=== PATIENT | male | born 1955 ===

== ENCOUNTER 2020-02-21 11:40 | Inpatient (IN) | payer OTHER ==
[2020-02-21] MEDS ORDERED: ALBUTEROL 2.5 MG/3 ML NEBU IH PRN (15:44)
[2020-02-21] MEDS ORDERED: ONDANSETRON 4 MG ODT TAB PO PRN (15:44)
[2020-02-21] MEDS ORDERED: POLYETHYLENE GLYCOL 3350 17 GM POWDER PO PRN (15:44)
[2020-02-21] MEDS ORDERED: ACETAMINOPHEN 325 MG TAB PO PRN (15:44)
[2020-02-21] MEDS: TICAGRELOR 90 MG TAB PO SCH (23:00)
--- NOTE | 2020-02-22 09:40 | History and Physical Report ---
History of Present Illness Date: 02/22/20 Date of admission: 02/21/20 15:17 Chief Complaint: CVA with left nondominant hemiparesis History of present illness: 64-year-old male who was in his normal state of health until he developed acute onset of weakness and facial droop. He was taken to the ER on 02/11/2020. He was worked up and diagnosed with a right sided MCA/ICA occlusion and was transferred for neuro intervention and underwent thrombectomy on 02/11/2020. After thrombectomy he had a slight improvement in his function. He developed a widespread rash was possibly related to medications that were subsequently stopped. Blood pressure was variable and apparently his home dose of HCTZ was reduced at one-point and he continues on that decreased dose currently. Will need to monitor his blood pressure closely and adjust medications as needed to keep him normotensive. Patient also had dysphagia and was evaluated by speech therapy which started him on a modified diet. We will monitor the patient closely for any issues with dehydration and are aspiration. Modified barium study as needed in order to prove his ability to take in a higher level diet vitals were incidentally found on a CT and an ultrasound showed a 3.7 hypervascular TR 3 nodule in the right mid thyroid that meets criteria for biopsy. Patient will need to follow-up with endocrinology at discharge for further biopsy and work-up. Patient did have some higher glucose values during his stay at the outside hospital and hemoglobin A1c was slightly elevated at 6.6. CTA performed on showed no significant stenosis involving the cervical carotid and vertebral arteries. States he had the previously seen occluded right internal carotid artery has been reestablished with no occlusion or high- grade stenosis. MRI brain on 02/11/2010 shows right MCA distribution infarct involving the caudate nucleus and ganglion region was more raised in the right parietal area and right frontal region. No significant mass-effect or hemorrhage identified. After the patient was medically stabilized they were transferred for further rehabilitation. All available medical records have been reviewed. Plan of care was discussed with patient and family. Day prior to the patient's admission for further acute inpatient rehabilitation approximately 100 pages of medical records were reviewed and summarized as stated above in the HPI. In total the review took 47 minutes. Due to the patient's current condition with acute CVA status post thrombectomy, continuing dysphagia and labile blood pressure, patient remains a high risk for further complications due to the stroke, aspiration pneumonia, secondary stroke and or sudden . Past History Past Medical History: hypertension Past Surgical History: No surgical history Social history: , lives with family, smoking, full code. denies: alcohol abuse (Alcohol use) Family history: stroke Medications and Allergies Allergies Allergy/AdvReac Type Severity Reaction Status Date / Time codeine Allergy Unknown Unverified 02/21/20 12:52 potassium Allergy Unknown Unverified 02/21/20 12:52 Active Meds: Active Medications Acetaminophen (Tylenol) 650 mg PO Q6H PRN PRN Reason: Non Cardiac Pain or Temp>100.5 Albuterol (Proventil) 2.5 mg IH Q4HRT PRN PRN Reason: Shortness Of Breath Aspirin (Halfprin Ec) 81 mg PO QDAY [facility] Atorvastatin Calcium (Lipitor) 80 mg PO QHS [facility] Last Admin: 02/21/20 22:59 Dose: 80 mg Documented by: Enoxaparin Sodium (Enoxaparin) 40 mg SUB-Q QDAY [facility] Hydrochlorothiazide (Hctz) 12.5 mg PO QDAY [facility] Ondansetron HCl (Zofran Odt) 4 mg PO Q8H PRN PRN Reason: Nausea And Vomiting Polyethylene Glycol (Miralax 3350) 17 gm PO QDAY PRN PRN Reason: Constipation Ticagrelor (Brilinta) 90 mg PO BID [facility] Last Admin: 02/21/20 23:00 Dose: 90 mg Documented by: Review of Systems All systems: negative (ROS negative for 10 systems except as noted below with pertinent positives and negatives.) Ears, nose, mouth and throat: dysphagia, no decreased hearing Cardiovascular: no chest pain, no rapid/irregular heart beat, no edema Respiratory: no cough, no shortness of breath Gastrointestinal: constipation, no abdominal pain, no nausea, no diarrhea Genitourinary Male: no dysuria Musculoskeletal: no shooting arm pain, no shooting leg pain Integumentary: rash, no wounds Neurological: weakness, lack of coordination, gait dysfunction Psychiatric: sadness/tearfullness Exam - Exam Narrative exam: MUSCULOSKELETAL SPECIALTY EXAM CONSTITUTIONAL: Well developed, well nourished, appropriately groomed, thin. RIGHT hand dominant. LYMPHATIC: No appreciable abnormalities palpable in neck RESPIRATORY: Clear to auscultation bilaterally, no increased work of breathing CARDIOVASCULAR: Regular Rate/ Rhythm, no swelling, edema or tenderness in BUE or BLE. Pulses palpable in all extremities. All extremities warm. GI: + bowel sounds, soft, NTTP, nondistended. INTEGUMENTARY: Widespread rash on torso and upper extremities. Otherwise, normal, no lesion, masses or bruising noted in extremities. MUSCULOSKELETAL: BUE and BLE normal without defect, crepitus, subluxation, effusion, arthritic changes or TTP. Seem to be some inattention to the left side on initial exam for strength patient had difficulty but with some concentration, he was able to improve his strength on his left extremities. R 4+/5 L 3 - 4- /5 ROM normal on the right, slight decreased on the left Tone within normal limits NEURO: CN II : Visual pisano full to confrontation CN II, III : PERRL CN III, IV, : EOMI CN V : Facial sensation intact CN VII : Left facial droop CN VIII : Hearing intact to finger rustle CN IX, X : Palate/uvula elevate midline, phonation normal CN XI : Intact shoulder shrug and head rotation CN XII : Tongue protrudes midline Sensation intact in all extremities without extinction. Reflexes 2+ on right and 3+ on the left at biceps, brachioradialis and patella. Sustained clonus at the L[place]el. Coordination decreased on left, with slight pronator drift. No tremor noted in 4 extremities. Naming and repetition intact. Able to spell the WORLD backwards Follows 2 step commands. Aphasia not appreciated Dysarthria present Dysphagia not appreciated Neglect possibly present on the left with slight inattention POSTURE and GAIT: Sitting posture good. Balance and gait deferred until seen with therapy. PSYCH: Alert, oriented x3, affect appears flattened. Insight appears intact. - Constitutional Vitals: Vital Signs - 12hr 02/21/20 02/21/20 02/22/20 22:20 23:39 05:26 Temperature 98.5 F 97.8 F Pulse Rate 96 H 85 Pulse Rate [ 91 H Apical] Respiratory 18 20 18 Rate Blood Pressure 110/68 108/71 Blood Pressure [Right] O2 Sat by Pulse 97 98 97 Oximetry 02/22/20 08:00 Temperature 97.8 F Pulse Rate 94 H Pulse Rate [ Apical] Respiratory 18 Rate Blood Pressure Blood Pressure 112/69 [Right] O2 Sat by Pulse Oximetry - Labs CBC & Chem 7: 02/22/20 10:54 Assessment and Plan Assessment and plan: Patient was assessed and evaluated for Acute Inpatient Rehab Unit. Due to the patients above-mentioned medical complexity, along with decreased functional mobility and self care, this patient continues to require and be a ppropriate for a comprehensive, multidisciplinary [id number] rehabilitation program. These needs cannot be met in an outpatient or other less intensive setting. The patient would continue to benefit from skilled therapy intervention for at least 3 hours per day, five days a week, with techni ques specific to the needs of the patient to improve function, activities of daily living, and reintegration into the community. The patient continues to require: -- OT to improve ROM, self-care, and learn use of adaptive equipment -- PT to improve strength and balance, functional transfers, and ambulation with energy conservation techniques to improve functional mobility -- ASSEMBLER CRIMPER to address cognitive deficits and swallowing ability -- 24 hour RN to ensure and prevent skin breakdown, promote progressive independence while ensuring safety, ensure education regarding medications, and incorporation of the rehabilitation at the bedside -- 24 hour Pot Liner to coordinate this interdisciplinary program, and to manage/prevent complications as a result of the patients medical comorbidities. -Plan of care by day 4 -Weekly team conferences With such a program, there is a reasonable certainty that the goals individualized for this patient can be achieved within the specified length of stay. CVA with left nondominant hemiparesis: Continue secondary stroke prevention. Monitor for recrudescence, posterior depression, shoulder-hand syndrome, shoulder sublux, worsening symptoms associated with dysphagia and dysarthtria, bowel and bladder issues. Discussed with patient diagnosis and coverage. Of CVA. We will continue to monitor and educate as time goes on. No driving until patient follows up with neurologist and is cleared. Patient will need to follow-up with neurology at discharge. Dysphagia: Continue modified diet. Speech therapy ordered for monitoring and strengthening ability to tolerate higher level diet. MBS as needed Dysarthria: Continue speech therapy for improvement of ability to enunciate and communicate. Hypertension: Continue medications and adjust as needed for normotension. Goal SBP less than 140. Avoid hypotension Rash: Patient developedat outside hospital. Suspected offending medications (Norvasc and losartan) were discontinued. Patient was given Atarax and Solu- Medrol. Patient still has itching and rash, will continue oral steroids and Atarax for symptom relief. Constipation: Patient states it has been several days since BM. We will contin ue as needed medications and monitor for improvement. Positive flatus denies nausea and vomiting. ADL dysfunction: OT will work on improving ability to perform ADLs (including assistive devices) to increase independence and decrease caregiver burden and improve functional transfers and mobility training. Difficulty walking: PT will work on gait training and proper use of assistive devices and advance as appropriate to use of stairs and outside ambulation on uneven surfaces. Unsteadiness on feet: PT will work on improving static and dynamic sitting and standing balance as well as proper use of assistive devices to decrease risk of falls. Abnormality of gait: PT will work to improve safety and efficiency of gait through neuromotor training and gait training along with instruction on proper use of assistive devices. Muscle weakness: PT & OT will work on strengthening exercises to improve functional strength including mixture of closed and open kinetic chain exercises. Debility: PT & OT will work on improving overall functional status to improve participation with ADLs, mobility and social involvement. Fatigue: PT & OT will work on improving endurance through aerobic exercises and therapeutic activity while monitoring patients tolerance for activity and vital signs as needed. DVT ppx: Lovenox Pain: Continue physical modalities in therapy and pain medications as needed to achieve functional pain control. Sleep: Monitor and address as needed. Bowel: Monitor and address as needed. Appetite: Monitor and address as needed. Discharge planning: Pending therapy progress and care plan meeting. Will continue discussion with therapy team, SW, patient and family. Restrictions/ Precautions: Falls, aspiration WB status: FWB Functional Hx: ADLs: Independent Cognition: Independent Mobility: No AD Barriers to Discharge: Decreased mobility and ability to perform self care, balance deficits, weakness Estimated Length of Stay: 14-18 days Discharge Destination: Home with family POST ADMISSION PHYSICIAN EVALUATION I have examined the patient and find that functional status, medical condition and appropriateness for IRF admission are essentially unchanged from those described in the preadmission screening. Will monitor for worsening neurologic dysfunction, poststroke depression, shoulder-hand syndrome, shoulder sublux, stroke recrudescence, worsening dysphagia, DVT/PE, bowel and bladder complications and complications due to hypertension, rash and electrolyte abnormalities. Will attempt to avoid occurrence of these issues or treat them if they present themselves.
[2020-02-22] MEDS: predniSONE 20 MG TAB PO SCH (10:50)
[2020-02-22] MEDS: TICAGRELOR 90 MG TAB PO SCH ×2 (10:50→21:29)
[2020-02-22] MEDS: ENOXAPARIN 40 MG/0.4 ML INJ SUB-Q SCH (10:50)
[2020-02-22] MEDS: hydroCHLOROthiazide 12.5 MG CAP PO SCH (10:50)
[2020-02-22] MEDS: ASPIRIN EC 81 MG TAB PO SCH (10:50)
[2020-02-22 11:40] LABS: Basophils % (Auto) 0.3 % (0.0-1.8); Eosinophils # (Auto) 0.7 K/mm3 (0.0-0.4); Eosinophils % (Auto) 9.9 % (0.0-4.3); Hematocrit 39.9 % (35.5-45.6); Hemoglobin 13.7 gm/dl (11.8-15.2); Lymphocytes # (Auto) 1.1 K/mm3 (1.2-5.4); Lymphocytes % (Auto) 16.3 % (13.4-35.0); Mean Corpuscular HGB Conc 34 % (32-34); Mean Corpuscular Volume 101 fl (84-94); Monocytes # (Auto) 0.7 K/mm3 (0.0-0.8); Monocytes % (Auto) 9.6 % (0.0-7.3); Platelet Count 502 K/mm3 (140-440); Red Blood Count 3.95 M/mm3 (3.65-5.03)
[2020-02-22] MEDS ORDERED: FLU VACC QUAD 2020-2021 (6 months +)/PF 60 0.5 ML SYRINGE IM ONE (12:00)
[2020-02-22 15:36] LABS: Alanine Aminotransferase 43 units/L (7-56); Albumin 3.8 g/dL (3.9-5); BUN/Creatinine Ratio 18; Blood Urea Nitrogen 16 mg/dL (9-20); Calcium 8.9 mg/dL (8.4-10.2); Hemolysis Index 0
[2020-02-23 06:25] LABS: Hematocrit 39.9 % (35.5-45.6); Hemoglobin 13.7 gm/dl (11.8-15.2); Mean Corpuscular HGB Conc 34 % (32-34); Mean Corpuscular Volume 100 fl (84-94); Platelet Count 534 K/mm3 (140-440); Red Blood Count 3.99 M/mm3 (3.65-5.03); Red Cell Distribution Width 16.2 % (13.2-15.2)
[2020-02-23 06:34] LABS: BUN/Creatinine Ratio 18; Blood Urea Nitrogen 18 mg/dL (9-20); Calcium 9.6 mg/dL (8.4-10.2); Hemolysis Index 20
[2020-02-23] MEDS: ASPIRIN EC 81 MG TAB PO SCH (09:01)
[2020-02-23] MEDS: ENOXAPARIN 40 MG/0.4 ML INJ SUB-Q SCH (09:01)
[2020-02-23] MEDS: TICAGRELOR 90 MG TAB PO SCH ×2 (09:01→22:07)
[2020-02-23] MEDS: predniSONE 20 MG TAB PO SCH (09:01)
[2020-02-23] MEDS: hydroCHLOROthiazide 12.5 MG CAP PO SCH (09:01)
--- NOTE | 2020-02-23 10:54 | Progress Note ---
Subjective Date of service: 02/23/20 Principal diagnosis: CVA with left nondominant hemiparesis Interval history: 64-year-old male who was in his normal state of health until he developed acute onset of weakness and facial droop. He was taken to the ER on 02/11/2020. He was worked up and diagnosed with a right sided MCA/ICA occlusion and was transferred for neuro intervention and underwent thrombectomy on 02/11/2020. After thrombectomy he had a slight improvement in his function. He developed a widespread rash was possibly related to medications that were subsequently stopped. Blood pressure was variable and apparently his home dose of HCTZ was reduced at one-point and he continues on that decreased dose currently. Will need to monitor his blood pressure closely and adjust medications as needed to keep him normotensive. Patient also had dysphagia and was evaluated by speech therapy which started him on a modified diet. We will monitor the patient closely for any issues with dehydration and are aspiration. Modified barium study as needed in order to prove his ability to take in a higher level diet vitals were incidentally found on a CT and an ultrasound showed a 3.7 hyp ervascular TR 3 nodule in the right mid thyroid that meets criteria for biopsy. Patient will need to follow-up with endocrinology at discharge for further biopsy and work-up. Patient did have some higher glucose values during his stay at the outside hospital and hemoglobin A1c was slightly elevated at 6.6. CTA performed at OSH showed no significant stenosis involving the cervical carotid and vertebral arteries. States he had the previously seen occluded right internal carotid artery has been reestablished with no occlusion or high- grade stenosis. MRI brain on 02/11/2010 shows right MCA distribution infarct involving the caudate nucleus and ganglion region in the right parietal area and right frontal region. No significant mass-effect or hemorrhage identified. Interval History: Patient is participating in therapy and making reasonable progress. Taking rest breaks as needed. +BM. Denies pain, palpitations, dyspnea, cough, N/V, weakness, or joint pain. CVA: Continue secondary stroke prevention measures.No further signs of neurologic decline, post stroke depression, shoulder sublux, shoulder-hand syndrome, stroke recrudescence, bowel or bladder issues. Dysphagia: Possibly silent aspiration noted by speech therapy. Will undergo modified barium swallow today in order to attempt to clear patient for advanced diet or to further restrict based on outcome of study. Aspiration precautions remain in effect. Dysarthria: Stable without any worsening as of symptoms. Continue speech therapy to improve ability to enunciate and communicate well. Hypertension: Goal SBP less than 140, patient doing fairly well on current dosing regimen. Will need to consider options outside of those already used at outside facility as patient had a rash with unknown origin but was suspected to be one of the agents used for blood pressure control or potassium replacement. Rash: Patient tolerating steroid use well, did have expected spike in leukocytosis but no fever noted. Will monitor and work-up if patient develops fever or other signs or symptoms of infection. Atarax available for pruritus Constipation: Improved with bowel medications, patient had a bowel movement last night. Discussed continuing medications as needed to avoid ongoing issues with constipation in the near future. All records, vitals, labs and medications were reviewed. No other issues per patient, nursing or therapy. Objective - Exam Narrative Exam: MUSCULOSKELETAL SPECIALTY EXAM CONSTITUTIONAL: Well developed, well nourished, appropriately groomed, thin. RIGHT hand dominant. RESPIRATORY: Clear to auscultation bilaterally, no increased work of breathing CARDIOVASCULAR: Regular Rate/ Rhythm, no swelling, edema or tenderness in BUE or BLE. All extremities warm. GI: + bowel sounds, soft, NTTP, nondistended. INTEGUMENTARY: Widespread rash on torso and upper extremities. Otherwise, normal, no lesion, masses or bruising noted in extremities. MUSCULOSKELETAL: BUE and BLE normal without defect, crepitus, subluxation, effusion, arthritic changes or TTP. Seem to be some inattention to the left side on initial exam for strength patient had difficulty but with some concentration, he was able to improve his strength on his left extremities. R 4+/5 L 3 - 4- /5 ROM normal on the right, slight decreased on the left Tone within normal limits NEURO: CN VII : Left facial droop Sensation intact in all extremities without extinction. No tremor noted in 4 extremities. Follows 2 step commands. Aphasia not appreciated Dysarthria present Dysphagia appreciated Neglect possibly present on the left with slight inattention POSTURE and GAIT: Sitting posture good. Balance and gait deferred until seen with therapy. PSYCH: Alert, oriented x3, affect appears flattened. Insight appears intact. - Constitutional Vitals: Vital Signs - 12hr 02/23/20 02/23/20 02/23/20 00:13 04:14 08:42 Temperature 97.2 F L 97.9 F Pulse Rate 96 H 77 104 H Respiratory 17 18 Rate Blood Pressure 130/90 124/85 106/75 O2 Sat by Pulse 97 98 97 Oximetry - Allied health notes Allied health notes reviewed: nursing, PT, ST, OT FIMS assessment as documented by PT/OT/ST: Locomotion- walk/wheelchair Ambulation Distance 10 - Labs CBC & Chem 7: 02/23/20 06:01 02/23/20 06:01 Labs: Laboratory Results - last 72 hr 02/22/20 02/22/20 02/23/20 10:54 14:38 06:01 WBC 7.0 13.2 H RBC 3.95 3.99 Hgb 13.7 13.7 Hct 39.9 39.9 MCV 101 H 100 H MCH 35 H 34 H MCHC 34 34 RDW 16.0 H 16.2 H Plt Count 502 H 534 H Lymph % (Auto) 16.3 [place] % (Auto) 9.6 H Eos % (Auto) 9.9 H Baso % (Auto) 0.3 Lymph # (Auto) 1.1 L [place] # (Auto) 0.7 Eos # (Auto) 0.7 H Baso # (Auto) 0.0 Seg Neutrophils % 63.9 Seg Neutrophils # 4.5 Sodium 132 L Potassium 3.9 Chloride 93.1 L Carbon Dioxide 29 Anion Gap 14 BUN 16 Creatinine 0.9 Estimated GFR > 60 BUN/Creatinine Ratio 18 Glucose 170 H Calcium 8.9 Total Bilirubin 0.50 AST 28 ALT 43 Alkaline Phosphatase 143 H Total Protein 7.7 Albumin 3.8 L Albumin/Globulin Ratio 1.0 02/23/20 06:01 WBC RBC Hgb Hct MCV MCH MCHC RDW Plt Count Lymph % (Auto) [place] % (Auto) Eos % (Auto) Baso % (Auto) Lymph # (Auto) [place] # (Auto) Eos # (Auto) Baso # (Auto) Seg Neutrophils % Seg Neutrophils # Sodium 137 Potassium 4.9 D Chloride TNR Carbon Dioxide 33 H Anion Gap 12 BUN 18 Creatinine 1.0 Estimated GFR > 60 BUN/Creatinine Ratio 18 Glucose 112 H Calcium 9.6 Total Bilirubin AST ALT Alkaline Phosphatase Total Protein Albumin Albumin/Globulin Ratio Assessment and Plan CVA with left nondominant hemiparesis: Continue secondary stroke prevention. Monitor for recrudescence, posterior depression, shoulder-hand syndrome, shoulder sublux, worsening symptoms associated with dysphagia and dysarthtria, bowel and bladder issues. Discussed with patient diagnosis and coverage. Of CVA. We will continue to monitor and educate as time goes on. No driving until patient follows up with neurologist and is cleared. Patient will need to follow-up with neurology at discharge. Dysphagia: Continue modified diet. Speech therapy ordered for monitoring and strengthening ability to tolerate higher level diet. MBS as needed Dysarthria: Continue speech therapy for improvement of ability to enunciate and communicate. Hypertension: Continue medications and adjust as needed for normotension. Goal SBP less than 140. Avoid hypotension Rash: Patient developedat outside hospital. Suspected offending medications (Norvasc and losartan) were discontinued. Patient was given Atarax and Solu- Medrol. Patient still has itching and rash, will continue oral steroids and Atarax for symptom relief. Constipation: Improved with medications. We will continue as needed medications and monitor for improvement. Positive flatus denies nausea and vomiting. ADL dysfunction: OT will work on improving ability to perform ADLs (including assistive devices) to increase independence and decrease caregiver burden and improve functional transfers and mobility training. Difficulty walking: PT will work on gait training and proper use of assistive devices and advance as appropriate to use of stairs and outside ambulation on uneven surfaces. Unsteadiness on feet: PT will work on improving static and dynamic sitting and standing balance as well as proper use of assistive devices to decrease risk of falls. Abnormality of gait: PT will work to improve safety and efficiency of gait through neuromotor training and gait training along with instruction on proper use of assistive devices. Muscle weakness: PT & OT will work on strengthening exercises to improve functional strength including mixture of closed and open kinetic chain exercises. Debility: PT & OT will work on improving overall functional status to improve participation with ADLs, mobility and social involvement. Fatigue: PT & OT will work on improving endurance through aerobic exercises and therapeutic activity while monitoring patients tolerance for activity and vital signs as needed. DVT ppx: Lovenox Pain: Continue physical modalities in therapy and pain medications as needed to achieve functional pain control. Sleep: Monitor and address as needed. Bowel: Monitor and address as needed. Appetite: Monitor and address as needed. Discharge planning: Pending therapy progress and care plan meeting. Will continue discussion with therapy team, SW, patient and family. Restrictions/ Precautions: Falls, aspiration WB status: FWB Functional Hx: ADLs: Independent Cognition: Independent Mobility: No AD Barriers to Discharge: Decreased mobility and ability to perform self care, balance deficits, weakness Estimated Length of Stay: 14-18 days Discharge Destination: Home with family
--- NOTE | 2020-02-23 16:03 | Fluoroscopy Report ---
MODIFIED BARIUM SWALLOW INDICATION: Dysphagia TECHNIQUE: Swallowing was evaluated in the lateral position under direct fluoroscopy. FINDINGS: The patient was evaluated with thin liquid, semisolid and solid consistencies. Premature spillage was witnessed with all 3 consistencies. No evidence for aspiration or penetration. No significant residuals. IMPRESSION: No evidence for aspiration or penetration. Fluoroscopic time: 1.0 minutes Number of fluoroscopic images: 1 Signer Name: Aki Kowalski Jr, MD Signed: 02/23/2020 3:59 PM Workstation Name: [id number]
[2020-02-24 08:02] LABS: Mean Corpuscular HGB Conc 37 % (32-34); Mean Corpuscular Volume 99 fl (84-94); Platelet Count 501 K/mm3 (140-440); Red Blood Count 3.61 M/mm3 (3.65-5.03); Red Cell Distribution Width 15.8 % (13.2-15.2)
[2020-02-24 08:03] LABS: Hematocrit 35.8 % (35.5-45.6); Hemoglobin 13.1 gm/dl (11.8-15.2)
--- NOTE | 2020-02-24 08:16 | IRU Plan of Care ---
Interdisciplinary Plan of Care - IP IRU INTERDISCIPLINARY PLAN: [facility] Inpatient Rehab Unit Plan of Care IRU Interdisciplinary Care Plan Start: 02/21/20 18:17 Freq: Status: Active Protocol: Document 02/23/20 16:25 TH (Rec: 02/23/20 16:28 TH [id number]) Interdisciplinary Problem List Interdisciplinary Problem List Interdisciplinary Problem List Impaired Eating/Swallowing, Query Text:Answers will Trigger Problems Impaired Dressing,Impaired and Outcomes on Worklist. Mobility,Impaired Transfers, Impaired Toileting,Impaired Problem Solving,Impaired Memory,Discharge Concerns, Impaired Safety IRU Interdisciplinary Care Plan Therapy Services Therapy Services Will Include: Physical Therapy,Occupational Query Text:Patient will be seen for a Therapy,Speech Therapy minimum of 3 hours of daily therapy 5 out of 7 days a week. Therapy intensity may be adjusted within a 7 consecutive day period to effectively serve the individual needs of the patient. Treatment Frequency/Intensity/Duration Treatment Frequency 5 DAYS PER WEEK Treatment Intensity 3 HOURS PER DAY Treatment Duration 14-18 DAYS Problem Area: Eating/Swallowing Eating/Swallowing Outcomes Consume Least Restrictive Diet Eating/Swallowing Interventions Patient/Caregiver Education Problem Area: Bathing/Grooming Bathing/Grooming Outcomes Improve Fork w/ Grooming,Improve Fork w/ Bathing Bathing/Grooming Interventions ADL Training,Use of Assistive Devices,Therapeutic Exercise, Therapeutic Activity, Neuromuscular Re-Education, Balance Work,Activity Tolerance Work,Patient/ Caregiver Education Problem Area: Dressing Dressing Outcomes Improve Fork w/ UB Dressing,Improve Fork w/ LB Dressing Dressing Interventions ADL Training,Use of Assistive Devices,Neuromuscular Re- Education,Therapeutic Exercise ,Balance Work,Modalities, Patient/Caregiver Education Problem Area: Mobility Mobility Outcomes Improve [place] w/ Bed Mobility,Improve Fork w/ Ambulation,Improve Fork w/ Stairs/Curb, Improve Fork w/ Wheelchair Mobility Interventions Therapeutic Exercise, Neuromuscular Re-Ed.,Patient/ Caregiver Education,Bed Mobility Work,Gait Training,W/ C Mobility Work Problem Area: Transfers Transfers Outcomes Improve Fork w/ Bed Transfers,Improve Fork w/ Toilet Transfers,Improve Fork w/ Tub/Shower Transfers,Improve Fork w/ Car Transfers Transfers Interventions Transfer Training,Therapeutic Exercise,Neuromuscular Re- Education,Patient/Caregiver Education Problem Area: Bowel/Bladder Managment Bowel/Bladder Outcomes Bowel/Bladder Interventions Problem Area: Toileting Toileting Outcomes Improve Fork w/ Toileting Toileting Interventions ADL Training,Balance Work,Use of Assistive Devices,Patient/ Caregiver Education Problem Area: Nutrition Nutrition Outcomes Nutrition Interventions Problem Area: Comprehension Comprehension Outcomes Comprehension Interventions Problem Area: Expression Expression Outcomes Expression Interventions Problem Area: Problem Solving Problem Solving Outcomes Improve Problem Solving Problem Solving Interventions Cognitive Training,Patient/ Caregiver Education Problem Area: Memory Memory Outcomes Memory Interventions Problem Area: Pain Management Pain Management Outcomes Pain Management Interventions Problem Area: Knowledge Deficits Knowledge Deficits Outcomes Knowledge Deficits Interventions Problem Area: Skin/Tissue Integrity Skin/Tissue Integrity Outcomes Skin/Tissue Integrity Interventions Problem Area: Social Interaction Social Interaction Outcomes Social Interaction Interventions Problem Area: Adjustment to Disability Adjustment to Disability Outcomes Adjustment to Disability Interventions Problem Area: Discharge Concerns Discharge Concerns Outcomes Discharge w/ Necessary Equipment,Have Home Health/ Outpatient Services Discharge Concerns Interventions Discharge Planning,Equipment Assessment, Acquisition and Placement,Family/Caregiver Training Problem Area: Community Reintegration Community Reintegration Outcomes Community Reintegration Interventions Problem Area: Home Management Home Management Outcomes Improve [place]ork w/ Home Management Home Management Interventions Money Management Tasks,Meal Preparation,Clothing Care, Activity Tolerance Work, Leisure Skills Development, House Cleaning,Patient/ Caregiver Education Problem Area: Safety Safety Outcomes Provide Safe Environment, Perform Selfcare Safely, Demonstrate Good Safety w/ Transfers/Mobility Safety Interventions Identify Fall Risk,[place] Pt. to Environment,Reduce Environmental Hazards Problem Area: Medication Education Medication Education Outcomes Medication Education Interventions Problem Area: Diabetes Education Diabetes Education Outcomes Diabetes Education Interventions Problem Area: Oxygenation Oxygenation Outcomes Oxygenation Interventions Problem Area: Cardiovascular Cardiovascular Outcomes Cardiovascular Interventions Physician Only Medical Prognosis and Rehabilitation Potential (Completed by Physician) Good prognosis, good rehab potential This plan of care has been developed based on the findings from the pre- admission assessment, post admission physician evaluation, information gathered from the assessments from all therapy disciplines and other pertinent clinicians. The plan of care has been reviewed and discussed in collaboration with the interdisciplinary team. The plan of care will be reviewed and updated at least weekly.
[2020-02-24 09:01] LABS: BUN/Creatinine Ratio 19; Blood Urea Nitrogen 19 mg/dL (9-20); Calcium 9.1 mg/dL (8.4-10.2); Hemolysis Index 16
[2020-02-24] MEDS: predniSONE 20 MG TAB PO SCH (11:31)
[2020-02-24] MEDS: TICAGRELOR 90 MG TAB PO SCH ×2 (11:31→21:31)
[2020-02-24] MEDS: hydrOXYzine HCL 25 MG TAB PO PRN (11:31)
[2020-02-24] MEDS: ASPIRIN EC 81 MG TAB PO SCH (11:31)
[2020-02-24] MEDS: ENOXAPARIN 40 MG/0.4 ML INJ SUB-Q SCH (11:32)
[2020-02-24] MEDS: hydroCHLOROthiazide 12.5 MG CAP PO SCH (11:32)
--- NOTE | 2020-02-25 09:43 | Progress Note ---
Subjective Date of service: 02/25/20 Principal diagnosis: CVA with left nondominant hemiparesis Interval history: 64-year-old male who was in his normal state of health until he developed acute onset of weakness and facial droop. He was taken to the ER on 02/11/2020. He was worked up and diagnosed with a right sided MCA/ICA occlusion and was transferred for neuro intervention and underwent thrombectomy on 02/11/2020. After thrombectomy he had a slight improvement in his function. He developed a widespread rash was possibly related to medications that were subsequently stopped. Blood pressure was variable and apparently his home dose of HCTZ was reduced at one-point and he continues on that decreased dose currently. Will need to monitor his blood pressure closely and adjust medications as needed to keep him normotensive. Patient also had dysphagia and was evaluated by speech therapy which started him on a modified diet. We will monitor the patient closely for any issues with dehydration and are aspiration. Modified barium study as needed in order to prove his ability to take in a higher level diet vitals were incidentally found on a CT and an ultrasound showed a 3.7 hyp ervascular TR 3 nodule in the right mid thyroid that meets criteria for biopsy. Patient will need to follow-up with endocrinology at discharge for further biopsy and work-up. Patient did have some higher glucose values during his stay at the outside hospital and hemoglobin A1c was slightly elevated at 6.6. CTA performed at OSH showed no significant stenosis involving the cervical carotid and vertebral arteries. States he had the previously seen occluded right internal carotid artery has been reestablished with no occlusion or high- grade stenosis. MRI brain on 02/11/2010 shows right MCA distribution infarct involving the caudate nucleus and ganglion region in the right parietal area and right frontal region. No significant mass-effect or hemorrhage identified. Interval History: Patient is participating in therapy and making reasonable progress. Taking rest breaks as needed. -BM. Denies pain, palpitations, dyspnea, cough, N/V, or joint pain. CVA: Continue secondary stroke prevention measures.No further signs of neurologic decline, post stroke depression, shoulder sublux, shoulder-hand syndrome, stroke recrudescence, bowel or bladder issues. Patient is having issues with cognitive deficits and is not accepting of this. Listened into conversation between speech therapy and the patient's for approximately 15 minutes. Discussed issue with nursing and representatives from all 3 therapies. Later discussed with patient for approximately 20 minutes his need to allow us to help improve his cognitive functioning. He became tearful at times seemed understanding of our overall goal once explained to him. Cognitive deficits: Noted during speech therapy session. Patient not agreeable to accepting the issue. We will continue working with the patient to improve cognitive abilities and or compensatory strategies. Dysphagia: MBS on 02/22 without signs of pharyngeal stasis, aspiration or laryngeal penetration. Diet upgraded to regular/thin liquids. Patient does have premature spillage with all consistencies. Resolved Dysarthria: Stable without any worsening as of symptoms. Continue speech therapy to improve ability to enunciate and communicate well. Hypertension: Goal SBP less than 140, patient doing fairly well on current dosing regimen. Will need to consider options outside of those already used at outside facility as patient had a rash with unknown origin but was suspected to be one of the agents used for blood pressure control or potassium replacement. Rash: Patient tolerating steroid use well, did have expected spike in leukocytosis which has since normalized but no fever noted. Will monitor and work-up if patient develops fever or other signs or symptoms of infection. Atarax available for pruritus which seems to be improving. Constipation: Improved with bowel medications. Oral bisacodyl started on a scheduled basis. Discussed continuing medications as needed to avoid ongoing issues with constipation in the near future. All records, vitals, labs and medications were reviewed. No other issues per patient, nursing or therapy. In total, 38 minutes was utilized providing care coordination of care for the patient today. Objective - Exam Narrative Exam: MUSCULOSKELETAL SPECIALTY EXAM CONSTITUTIONAL: Well developed, well nourished, appropriately groomed, thin. RIGHT hand dominant. RESPIRATORY: Clear to auscultation bilaterally, no increased work of breathing CARDIOVASCULAR: Regular Rate/ Rhythm, no swelling, edema or tenderness in BUE or BLE. All extremities warm. GI: + bowel sounds, soft, NTTP, nondistended. INTEGUMENTARY: Widespread rash on torso and upper extremities, improving. Otherwise, normal, no lesion, masses or bruising noted in extremities. MUSCULOSKELETAL: BUE and BLE normal without defect, crepitus, subluxation, effusion, arthritic changes or TTP. Seem to be some inattention to the left side on initial exam for strength patient had difficulty but with some concentration, he was able to improve his strength on his left extremities. R 4+/5 L 3 - 4- /5 ROM normal on the right, slight decreased on the left Tone within normal limits NEURO: CN VII : Left facial droop Cognitive deficits noted. Sensation intact in all extremities without extinction. No tremor noted in 4 extremities. Follows 2 step commands. Aphasia not appreciated Dysarthria present Dysphagia appreciated Neglect possibly present on the left with slight inattention POSTURE and GAIT: Sitting posture good. Balance and gait deferred until seen with therapy. PSYCH: Alert, oriented x3, affect appears flattened, tearful at times. Insight appears intact. - Constitutional Vitals: Vital Signs - 12hr 02/24/20 02/25/20 22:00 04:18 Temperature 97.7 F Pulse Rate 72 Respiratory 20 Rate Blood Pressure 134/89 O2 Sat by Pulse 96 100 Oximetry - Allied health notes Allied health notes reviewed: nursing, PT, ST, OT FIMS assessment as documented by PT/OT/ST: Locomotion- walk/wheelchair Ambulation Distance 10 - Labs CBC & Chem 7: 02/24/20 07:31 02/24/20 07:31 Labs: Laboratory Results - last 72 hr 02/22/20 02/22/20 02/23/20 10:54 14:38 06:01 WBC 7.0 13.2 H RBC 3.95 3.99 Hgb 13.7 13.7 Hct 39.9 39.9 MCV 101 H 100 H MCH 35 H 34 H MCHC 34 34 RDW 16.0 H 16.2 H Plt Count 502 H 534 H Lymph % (Auto) 16.3 [place] % (Auto) 9.6 H Eos % (Auto) 9.9 H Baso % (Auto) 0.3 Lymph # (Auto) 1.1 L [place] # (Auto) 0.7 Eos # (Auto) 0.7 H Baso # (Auto) 0.0 Seg Neutrophils % 63.9 Seg Neutrophils # 4.5 Sodium 132 L Potassium 3.9 Chloride 93.1 L Carbon Dioxide 29 Anion Gap 14 BUN 16 Creatinine 0.9 Estimated GFR > 60 BUN/Creatinine Ratio 18 Glucose 170 H Calcium 8.9 Total Bilirubin 0.50 AST 28 ALT 43 Alkaline Phosphatase 143 H Total Protein 7.7 Albumin 3.8 L Albumin/Globulin Ratio 1.0 02/23/20 02/24/20 02/24/20 06:01 07:31 07:31 WBC 9.5 RBC 3.61 L Hgb 13.1 Hct 35.8 MCV 99 H MCH 36 H MCHC 37 H RDW 15.8 H Plt Count 501 H Lymph % (Auto) [place] % (Auto) Eos % (Auto) Baso % (Auto) Lymph # (Auto) [place] # (Auto) Eos # (Auto) Baso # (Auto) Seg Neutrophils % Seg Neutrophils # Sodium 137 136 L Potassium 4.9 D 3.8 D Chloride TNR 96.5 L Carbon Dioxide 33 H 31 H Anion Gap 12 12 BUN 18 19 Creatinine 1.0 1.0 Estimated GFR > 60 > 60 BUN/Creatinine Ratio 18 19 Glucose 112 H 92 Calcium 9.6 9.1 Total Bilirubin AST ALT Alkaline Phosphatase Total Protein Albumin Albumin/Globulin Ratio Assessment and Plan CVA with left nondominant hemiparesis: Continue secondary stroke prevention. Monitor for recrudescence, posterior depression, shoulder-hand syndrome, shoulder sublux, worsening symptoms associated with dysphagia and dysarthtria, bowel and bladder issues. Discussed with patient diagnosis and coverage. Of CVA. We will continue to monitor and educate as time goes on. No driving until patient follows up with neurologist and is cleared. Patient will need to follow-up with neurology at discharge. Patient will need to follow-up with Dr. Morales (neurosurgery) in approximately 1 month [phone]. Dysphagia: Advance to regular diet. MBS showed spillage but no aspiration. Dysarthria: Continue speech therapy for improvement of ability to enunciate and communicate. Hypertension: Continue medications and adjust as needed for normotension. Goal SBP less than 140. Avoid hypotension Rash: Patient developedat outside hospital. Suspected offending medications (Norvasc and losartan) were discontinued. Patient was given Atarax and Solu- Medrol. Patient still has itching and rash, will continue oral steroids and Atarax for symptom relief. Constipation: Improved with medications. We will continue as needed medications and monitor for improvement. Positive flatus denies nausea and vomiting. Cognitive deficits: Difficult for the patient to accept. Long conversation with the patient and family today, hope to see better participation on speech therapy activities going forward now that we have explained the magnitude of the deficits. ADL dysfunction: OT will work on improving ability to perform ADLs (including as sistive devices) to increase independence and decrease caregiver burden and improve functional transfers and mobility training. Difficulty walking: PT will work on gait training and proper use of assistive devices and advance as appropriate to use of stairs and outside ambulation on uneven surfaces. Unsteadiness on feet: PT will work on improving static and dynamic sitting and standing balance as well as proper use of assistive devices to decrease risk of falls. Abnormality of gait: PT will work to improve safety and efficiency of gait through neuromotor training and gait training along with instruction on proper use of assistive devices. Muscle weakness: PT & OT will work on strengthening exercises to improve functional strength including mixture of closed and open kinetic chain exerc ises. Debility: PT & OT will work on improving overall functional status to improve participation with ADLs, mobility and social involvement. Fatigue: PT & OT will work on improving endurance through aerobic exercises and therapeutic activity while monitoring patients tolerance for activity and vital signs as needed. DVT ppx: Lovenox Pain: Continue physical modalities in therapy and pain medications as needed to achieve functional pain control. Sleep: Monitor and address as needed. Bowel: Monitor and address as needed. Appetite: Monitor and address as needed. Discharge planning: Pending therapy progress and care plan meeting. Will continue discussion with therapy team, SW, patient and family. Restrictions/ Precautions: Falls, aspiration WB status: FWB Functional Hx: ADLs: Independent Cognition: Independent Mobility: No AD Barriers to Discharge: Decreased mobility and ability to perform self care, balance deficits, weakness Estimated Length of Stay: 14-18 days Discharge Destination: Home with family
[2020-02-25] MEDS: TICAGRELOR 90 MG TAB PO SCH ×2 (13:10→21:58)
[2020-02-25] MEDS: ENOXAPARIN 40 MG/0.4 ML INJ SUB-Q SCH (13:10)
[2020-02-25] MEDS: hydroCHLOROthiazide 12.5 MG CAP PO SCH (13:10)
[2020-02-25] MEDS: ASPIRIN EC 81 MG TAB PO SCH (13:10)
[2020-02-25 16:19] LABS: Hematocrit 38.2 % (35.5-45.6); Mean Corpuscular HGB Conc 34 % (32-34); Mean Corpuscular Volume 101 fl (84-94); Platelet Count 532 K/mm3 (140-440); Red Blood Count 3.79 M/mm3 (3.65-5.03); Red Cell Distribution Width 15.7 % (13.2-15.2)
[2020-02-25 16:37] LABS: BUN/Creatinine Ratio 21; Blood Urea Nitrogen 21 mg/dL (9-20); Calcium 9.1 mg/dL (8.4-10.2); Hemolysis Index 6
[2020-02-26 07:16] LABS: Hematocrit 37.9 % (35.5-45.6); Hemoglobin 12.8 gm/dl (11.8-15.2); Mean Corpuscular HGB Conc 34 % (32-34); Mean Corpuscular Volume 101 fl (84-94); Platelet Count 517 K/mm3 (140-440); Red Blood Count 3.77 M/mm3 (3.65-5.03); Red Cell Distribution Width 16.1 % (13.2-15.2)
[2020-02-26 07:35] LABS: BUN/Creatinine Ratio 18; Blood Urea Nitrogen 18 mg/dL (9-20); Calcium 9.1 mg/dL (8.4-10.2); Hemolysis Index 27
[2020-02-26] MEDS: hydroCHLOROthiazide 12.5 MG CAP PO SCH (08:59)
[2020-02-26] MEDS: ENOXAPARIN 40 MG/0.4 ML INJ SUB-Q SCH (08:59)
[2020-02-26] MEDS: ASPIRIN EC 81 MG TAB PO SCH (08:59)
[2020-02-26] MEDS: TICAGRELOR 90 MG TAB PO SCH ×2 (08:59→21:22)
--- NOTE | 2020-02-26 09:08 | Progress Note ---
Subjective Date of service: 02/26/20 Principal diagnosis: CVA with left nondominant hemiparesis Interval history: 64-year-old male who was in his normal state of health until he developed acute onset of weakness and facial droop. He was taken to the ER on 02/11/2020. He was worked up and diagnosed with a right sided MCA/ICA occlusion and was transferred for neuro intervention and underwent thrombectomy on 02/11/2020. After thrombectomy he had a slight improvement in his function. He developed a widespread rash was possibly related to medications that were subsequently stopped. Blood pressure was variable and apparently his home dose of HCTZ was reduced at one-point and he continues on that decreased dose currently. Will need to monitor his blood pressure closely and adjust medications as needed to keep him normotensive. Patient also had dysphagia and was evaluated by speech therapy which started him on a modified diet. We will monitor the patient closely for any issues with dehydration and are aspiration. Modified barium study as needed in order to prove his ability to take in a higher level diet vitals were incidentally found on a CT and an ultrasound showed a 3.7 hyp ervascular TR 3 nodule in the right mid thyroid that meets criteria for biopsy. Patient will need to follow-up with endocrinology at discharge for further biopsy and work-up. Patient did have some higher glucose values during his stay at the outside hospital and hemoglobin A1c was slightly elevated at 6.6. CTA performed at OSH showed no significant stenosis involving the cervical carotid and vertebral arteries. States he had the previously seen occluded right internal carotid artery has been reestablished with no occlusion or high- grade stenosis. MRI brain on 02/11/2010 shows right MCA distribution infarct involving the caudate nucleus and ganglion region in the right parietal area and right frontal region. No significant mass-effect or hemorrhage identified. Interval History: Patient is participating in therapy and making reasonable progress. Taking rest breaks as needed. -BM medications were adjusted yesterday. Denies pain, palpitations, dyspnea, cough, N/V, or joint pain. CVA: Continue secondary stroke prevention measures.No further signs of neurologic decline, post stroke depression, shoulder sublux, shoulder-hand syndrome, stroke recrudescence, bowel or bladder issues. Patient is having issues with cognitive deficits and is not accepting of this. Participation seems to be better with speech therapy after our conversation yesterday Cognitive deficits: Noted during speech therapy session. Patient not agreeable to accepting the issue. We will continue working with the patient to improve cognitive abilities and or compensatory strategies. Dysphagia: MBS on 02/22 without signs of pharyngeal stasis, aspiration or laryngeal penetration. Diet upgraded to regular/thin liquids. Patient does have premature spillage with all consistencies. Resolved Dysarthria: Stable without any worsening as of symptoms. Continue speech therapy to improve ability to enunciate and communicate well. Hypertension: Goal SBP less than 140, patient doing fairly well on current dosing regimen. Will need to consider options outside of those already used at outside facility as patient had a rash with unknown origin but was suspected to be one of the agents used for blood pressure control or potassium replacement. Rash: Patient tolerating steroid use well, did have expected spike in leukocytosis which has since normalized but no fever noted. Will monitor and work-up if patient develops fever or other signs or symptoms of infection. Atarax available for pruritus which seems to be improving. Constipation: Improved with bowel medications. Oral bisacodyl started on a scheduled basis. Discussed continuing medications as needed to avoid ongoing issues with constipation in the near future. All records, vitals, labs and medications were reviewed. No other issues per patient, nursing or therapy. Objective - Exam Narrative Exam: MUSCULOSKELETAL SPECIALTY EXAM CONSTITUTIONAL: Well developed, well nourished, appropriately groomed, thin. RIGHT hand dominant. RESPIRATORY: Clear to auscultation bilaterally, no increased work of breathing CARDIOVASCULAR: Regular Rate/ Rhythm, no swelling, edema or tenderness in BUE or BLE. All extremities warm. GI: + bowel sounds, soft, NTTP, nondistended. INTEGUMENTARY: Widespread rash on torso and upper extremities, improving and scattered mild bruising. Otherwise, normal, no lesion, masses noted in extremities. MUSCULOSKELETAL: BUE and BLE normal without defect, crepitus, subluxation, effusion, arthritic changes or TTP. Seem to be some inattention to the left side on initial exam for strength patient had difficulty but with some concentration, he was able to improve his strength on his left extremities. R 4+/5 L 3 - 4- /5 ROM normal on the right, slight decreased on the left Tone within normal limits NEURO: CN VII : Left facial droop Cognitive deficits noted. Sensation intact in all extremities without extinction. No tremor noted in 4 extremities. Follows 2 step commands. Aphasia not appreciated Dysarthria present Dysphagia appreciated Neglect possibly present on the left with slight inattention POSTURE and GAIT: Sitting posture good. Balance and gait deferred until seen with therapy. PSYCH: Alert, oriented x3, affect appears flattened, tearful at times. Insight appears intact. - Constitutional Vitals: Vital Signs - 12hr 02/26/20 02/26/20 04:01 07:35 Temperature 97.9 F 98.1 F Pulse Rate 92 H 89 Respiratory 16 18 Rate Blood Pressure 118/76 127/83 O2 Sat by Pulse 99 99 Oximetry - Allied health notes Allied health notes reviewed: nursing, PT, ST, OT FIMS assessment as documented by PT/OT/ST: Locomotion- walk/wheelchair Ambulation Distance 10 - Labs CBC & Chem 7: 02/26/20 06:46 02/26/20 06:46 Labs: Laboratory Results - last 72 hr 02/24/20 02/24/20 02/25/20 07:31 07:31 15:08 WBC 9.5 9.8 RBC 3.61 L 3.79 Hgb 13.1 13.0 Hct 35.8 38.2 MCV 99 H 101 H MCH 36 H 34 H MCHC 37 H 34 RDW 15.8 H 15.7 H Plt Count 501 H 532 H Sodium 136 L Potassium 3.8 D Chloride 96.5 L Carbon Dioxide 31 H Anion Gap 12 BUN 19 Creatinine 1.0 Estimated GFR > 60 BUN/Creatinine Ratio 19 Glucose 92 Calcium 9.1 02/25/20 02/26/20 02/26/20 15:08 06:46 06:46 WBC 8.0 RBC 3.77 Hgb 12.8 Hct 37.9 MCV 101 H MCH 34 H MCHC 34 RDW 16.1 H Plt Count 517 H Sodium 138 140 Potassium 3.5 L 3.8 Chloride 98.3 98.8 Carbon Dioxide 31 H 33 H Anion Gap 12 12 BUN 21 H 18 Creatinine 1.0 1.0 Estimated GFR > 60 > 60 BUN/Creatinine Ratio 21 18 Glucose 98 97 Calcium 9.1 9.1 Assessment and Plan CVA with left nondominant hemiparesis: Continue secondary stroke prevention. Monitor for recrudescence, posterior depression, shoulder-hand syndrome, shoulder sublux, worsening symptoms associated with dysphagia and dysarthtria, bowel and bladder issues. Discussed with patient diagnosis and coverage. Of CVA. We will continue to monitor and educate as time goes on. No driving until patient follows up with neurologist and is cleared. Patient will need to follow-up with neurology at discharge. Patient will need to follow-up with Dr. Morales (neurosurgery) in approximately 1 month [phone]. Dysphagia: Advance to regular diet. MBS showed spillage but no aspiration. Dysarthria: Continue speech therapy for improvement of ability to enunciate and communicate. Hypertension: Continue medications and adjust as needed for normotension. Goal SBP less than 140. Avoid hypotension Rash: Patient developedat outside hospital. Suspected offending medications (Norvasc and losartan) were discontinued. Patient was given Atarax and Solu- Medrol. Patient still has itching and rash, will continue oral steroids and Atarax for symptom relief. Constipation: Improved with medications. We will continue as needed medications and monitor for improvement. Positive flatus denies nausea and vomiting. Cognitive deficits: Difficult for the patient to accept. Long conversation with the patient and family today, hope to see better participation on speech therapy activities going forward now that we have explained the magnitude of the deficits. Seems to be working better with speech therapy now after our conversation. ADL dysfunction: OT will work on improving ability to perform ADLs (including assistive devices) to increase independence and decrease caregiver burden and improve functional transfers and mobility training. Difficulty walking: PT will work on gait training and proper use of assistive devices and advance as appropriate to use of stairs and outside ambulation on uneven surfaces. Unsteadiness on feet: PT will work on improving static and dynamic sitting and standing balance as well as proper use of assistive devices to decrease risk of falls. Abnormality of gait: PT will work to improve safety and efficiency of gait through neuromotor training and gait training along with instruction on proper use of assistive devices. Muscle weakness: PT & OT will work on strengthening exercises to improve functional strength including mixture of closed and open kinetic chain exercises. Debility: PT & OT will work on improving overall functional status to improve participation with ADLs, mobility and social involvement. Fatigue: PT & OT will work on improving endurance through aerobic exercises and therapeutic activity while monitoring patients tolerance for activity and vital signs as needed. DVT ppx: Lovenox Pain: Continue physical modalities in therapy and pain medications as needed to achieve functional pain control. Sleep: Monitor and address as needed. Bowel: Monitor and address as needed. Appetite: Monitor and address as needed. Discharge planning: Pending therapy progress and care plan meeting. Will continue discussion with therapy team, SW, patient and family. Restrictions/ Precautions: Falls, aspiration WB status: FWB Functional Hx: ADLs: Independent Cognition: Independent Mobility: No AD Barriers to Discharge: Decreased mobility and ability to perform self care, balance deficits, weakness Estimated Length of Stay: 14-18 days Discharge Destination: Home with family
[2020-02-27 08:39] LABS: Hematocrit 38.5 % (35.5-45.6); Hemoglobin 13.3 gm/dl (11.8-15.2); Mean Corpuscular HGB Conc 35 % (32-34); Mean Corpuscular Volume 100 fl (84-94); Platelet Count 506 K/mm3 (140-440); Red Blood Count 3.85 M/mm3 (3.65-5.03); Red Cell Distribution Width 15.9 % (13.2-15.2)
[2020-02-27 09:19] LABS: BUN/Creatinine Ratio 17; Blood Urea Nitrogen 15 mg/dL (9-20); Hemolysis Index 27
[2020-02-27] MEDS: TICAGRELOR 90 MG TAB PO SCH ×2 (10:52→21:19)
[2020-02-27] MEDS: ENOXAPARIN 40 MG/0.4 ML INJ SUB-Q SCH (10:52)
[2020-02-27] MEDS: hydroCHLOROthiazide 12.5 MG CAP PO SCH (10:53)
[2020-02-27] MEDS: ASPIRIN EC 81 MG TAB PO SCH (10:53)
--- NOTE | 2020-02-28 09:24 | Progress Note ---
Subjective Date of service: 02/28/20 Principal diagnosis: CVA with left nondominant hemiparesis Interval history: 64-year-old male who was in his normal state of health until he developed acute onset of weakness and facial droop. He was taken to the ER on 02/11/2020. He was worked up and diagnosed with a right sided MCA/ICA occlusion and was transferred for neuro intervention and underwent thrombectomy on 02/11/2020. After thrombectomy he had a slight improvement in his function. He developed a widespread rash was possibly related to medications that were subsequently stopped. Blood pressure was variable and apparently his home dose of HCTZ was reduced at one-point and he continues on that decreased dose currently. Will need to monitor his blood pressure closely and adjust medications as needed to keep him normotensive. Patient also had dysphagia and was evaluated by speech therapy which started him on a modified diet. We will monitor the patient closely for any issues with dehydration and are aspiration. Modified barium study as needed in order to prove his ability to take in a higher level diet vitals were incidentally found on a CT and an ultrasound showed a 3.7 hyp ervascular TR 3 nodule in the right mid thyroid that meets criteria for biopsy. Patient will need to follow-up with endocrinology at discharge for further biopsy and work-up. Patient did have some higher glucose values during his stay at the outside hospital and hemoglobin A1c was slightly elevated at 6.6. CTA performed at OSH showed no significant stenosis involving the cervical carotid and vertebral arteries. States he had the previously seen occluded right internal carotid artery has been reestablished with no occlusion or high- grade stenosis. MRI brain on 02/11/2010 shows right MCA distribution infarct involving the caudate nucleus and ganglion region in the right parietal area and right frontal region. No significant mass-effect or hemorrhage identified. Interval History: Patient is participating in therapy and making reasonable progress. Taking rest breaks as needed. +BM. Denies pain, palpitations, dyspnea, cough, N/V, or joint pain. CVA: Continue secondary stroke prevention measures.No further signs of neurologic decline, post stroke depression, shoulder sublux, shoulder-hand syndrome, stroke recrudescence, bowel or bladder issues. Patient is having issues with cognitive deficits and is not accepting of this. Participation seems to be better with speech therapy after our previous conversation. Patient utilizing AFO for left lower extremity to improve ability to ambulate and decreased propensity for falls being that he does have weakness when not concen trating on the left side. Also discussed with OT and patient about utilizing CIMT (constraint induced movement therapy) in order to improve the patient's function of the left upper extremity. Cognitive deficits: We will continue working with the patient to improve cognitive abilities and or compensatory strategies. Attempting to utilize all 3 therapies and nursing to help improve the patient's cognition and his recognition of his cognitive deficits after the stroke. After our conversation previously as well as multiple interventions by all involved, it does seem the patient is realizing and excepting more more that he does have some cognitive changes since the stroke. We will continue to work with him as we move forward. Dysphagia: MBS on 02/22 without signs of pharyngeal stasis, aspiration or laryngeal penetration. Diet upgraded to regular/thin liquids. Patient does have premature spillage with all consistencies. Resolved Dysarthria: Stable without any worsening of symptoms. Continue speech therapy to improve ability to enunciate and communicate well. Hypertension: Goal SBP less than 140, patient doing fairly well on current dosing regimen. Will need to consider options outside of those already used at outside facility as patient had a rash with unknown origin but was suspected to be one of the agents used for blood pressure control or potassium replacement. Rash: Patient tolerating steroid use well, did have expected spike in leukocytosis which has since normalized but no fever noted. Will monitor and work-up if patient develops fever or other signs or symptoms of infection. Atarax available for pruritus which seems to be improving. Almost resolved, con tinually improving Constipation: Improved with bowel medications. Oral bisacodyl started on a sche duled basis. Discussed continuing medications as needed to avoid ongoing issues with constipation in the near future. All records, vitals, labs and medications were reviewed. No other issues per p atient, nursing or therapy. Patient was discussed with all therapies and nursing. In total 38 minutes was utilized with more than 50% of this counseling and coordinating care. Complexity of patient involved consideration and determination to utilize CIMT for functional gains in the left upper extremity as well as discussing with therapies other types of therapeutic interventions to improve not only cognitive functioning but physical functioning of the left hemiplegic side. Objective - Exam Narrative Exam: MUSCULOSKELETAL SPECIALTY EXAM CONSTITUTIONAL: Well developed, well nourished, appropriately groomed, thin. RIGHT hand dominant. RESPIRATORY: Clear to auscultation bilaterally, no increased work of breathing CARDIOVASCULAR: Regular Rate/ Rhythm, no swelling, edema or tenderness in BUE or BLE. All extremities warm. GI: + bowel sounds, soft, NTTP, nondistended. INTEGUMENTARY: Widespread rash on torso and upper extremities, improving and almost resolved. Scattered mild bruising. Otherwise, normal, no lesion, masses noted in extremities. MUSCULOSKELETAL: BUE and BLE normal without defect, crepitus, subluxation, effusion, arthritic changes or TTP. Seem to be some inattention to the left side on initial exam for strength patient had difficulty but with some concentration, he was able to improve his strength on his left extremities. R 4+/5 L 3 - 4- /5 ROM normal on the right, slight decreased on the left Tone within normal limits NEURO: CN VII : Left facial droop Cognitive deficits noted. Sensation intact in all extremities without extinction. No tremor noted in 4 extremities. Follows 2 step commands. Aphasia not appreciated Dysarthria present Dysphagia appreciated Neglect possibly present on the left with slight inattention POSTURE and GAIT: Sitting posture good. Balance and gait deferred until seen with therapy. PSYCH: Alert, oriented x3, affect appears flattened, tearful at times. Insight appears intact. - Constitutional Vitals: Vital Signs - 12hr 02/27/20 23:46 Temperature 98.4 F Pulse Rate 86 Respiratory 18 Rate Blood Pressure 137/92 O2 Sat by Pulse 98 Oximetry - Allied health notes Allied health notes reviewed: nursing, PT, ST, OT FIMS assessment as documented by PT/OT/ST: Locomotion- walk/wheelchair Ambulation Distance 10 - Labs CBC & Chem 7: 02/28/20 08:51 02/28/20 08:51 Labs: Laboratory Results - last 72 hr 02/25/20 02/25/20 02/26/20 15:08 15:08 06:46 WBC 9.8 8.0 RBC 3.79 3.77 Hgb 13.0 12.8 Hct 38.2 37.9 MCV 101 H 101 H MCH 34 H 34 H MCHC 34 34 RDW 15.7 H 16.1 H Plt Count 532 H 517 H Sodium 138 Potassium 3.5 L Chloride 98.3 Carbon Dioxide 31 H Anion Gap 12 BUN 21 H Creatinine 1.0 Estimated GFR > 60 BUN/Creatinine Ratio 21 Glucose 98 Calcium 9.1 02/26/20 02/27/20 02/27/20 06:46 08:20 08:20 WBC 8.4 RBC 3.85 Hgb 13.3 Hct 38.5 MCV 100 H MCH 35 H MCHC 35 H RDW 15.9 H Plt Count 506 H Sodium 140 132 L D Potassium 3.8 4.0 Chloride 98.8 98.2 Carbon Dioxide 33 H 25 D Anion Gap 12 13 BUN 18 15 Creatinine 1.0 0.9 Estimated GFR > 60 > 60 BUN/Creatinine Ratio 18 17 Glucose 97 102 H Calcium 9.1 9.0 Assessment and Plan CVA with left nondominant hemiparesis: Continue secondary stroke prevention. Monitor for recrudescence, posterior depression, shoulder-hand syndrome, shoulder sublux, worsening symptoms associated with dysphagia and dysarthtria, bowel and bladder issues. Discussed with patient diagnosis and coverage. Of CVA. We will continue to monitor and educate as time goes on. No driving until patient follows up with neurologist and is cleared. We will start CIMT in order to improve left upper extremity function. Utilizing AFO on left lower extremity. Patient will need to follow-up with neurology at discharge. Patient will need to follow-up with Dr. Morales (neurosurgery) in approximately 1 month [phone]. Dysphagia: Advance to regular diet. MBS showed spillage but no aspiration. Dysarthria: Continue speech therapy for improvement of ability to enunciate and communicate. Hypertension: Continue medications and adjust as needed for normotension. Goal SBP less than 140. Avoid hypotension Rash: Patient developedat outside hospital. Suspected offending medications ( Norvasc and losartan) were discontinued. Patient was given Atarax and Solu- Medrol. Patient still has itching and rash, will continue oral steroids and Atarax for symptom relief. Constipation: Improved with medications. We will continue as needed medications and monitor for improvement. Positive flatus denies nausea and vomiting. Cognitive deficits: Difficult for the patient to accept. Long conversation with the patient and family today, hope to see better participation on speech therapy activities going forward now that we have explained the magnitude of the deficits. Seems to be working better with speech therapy now after our conversation. Have discussed with GROUND SYSTEMS ENGINEER, OT, PT and nursing about strategies to help improve patient's recognition of cognitive deficits and to improve his c ognitive function. ADL dysfunction: OT will work on improving ability to perform ADLs (including as sistive devices) to increase independence and decrease caregiver burden and improve functional transfers and mobility training. Difficulty walking: PT will work on gait training and proper use of assistive devices and advance as appropriate to use of stairs and outside ambulation on uneven surfaces. Unsteadiness on feet: PT will work on improving static and dynamic sitting and standing balance as well as proper use of assistive devices to decrease risk of falls. Abnormality of gait: PT will work to improve safety and efficiency of gait through neuromotor training and gait training along with instruction on proper use of assistive devices. Muscle weakness: PT & OT will work on strengthening exercises to improve functional strength including mixture of closed and open kinetic chain exerc ises. Debility: PT & OT will work on improving overall functional status to improve participation with ADLs, mobility and social involvement. Fatigue: PT & OT will work on improving endurance through aerobic exercises and therapeutic activity while monitoring patients tolerance for activity and vital signs as needed. DVT ppx: Lovenox Pain: Continue physical modalities in therapy and pain medications as needed to achieve functional pain control. Sleep: Monitor and address as needed. Bowel: Monitor and address as needed. Appetite: Monitor and address as needed. Discharge planning: Pending therapy progress and care plan meeting. Will continue discussion with therapy team, SW, patient and family. Restrictions/ Precautions: Falls, aspiration WB status: FWB Functional Hx: ADLs: Independent Cognition: Independent Mobility: No AD Barriers to Discharge: Decreased mobility and ability to perform self care, balance deficits, weakness Estimated Length of Stay: 14-18 days Discharge Destination: Home with family
[2020-02-28 09:30] LABS: Hematocrit 39.4 % (35.5-45.6); Hemoglobin 13.6 gm/dl (11.8-15.2); Mean Corpuscular HGB Conc 35 % (32-34); Mean Corpuscular Volume 101 fl (84-94); Platelet Count 553 K/mm3 (140-440); Red Blood Count 3.92 M/mm3 (3.65-5.03); Red Cell Distribution Width 15.5 % (13.2-15.2)
[2020-02-28 09:55] LABS: BUN/Creatinine Ratio 17; Blood Urea Nitrogen 15 mg/dL (9-20); Calcium 9.2 mg/dL (8.4-10.2); Hemolysis Index 1
[2020-02-28] MEDS: hydroCHLOROthiazide 12.5 MG CAP PO SCH (11:28)
[2020-02-28] MEDS: ASPIRIN EC 81 MG TAB PO SCH (11:28)
[2020-02-28] MEDS: ENOXAPARIN 40 MG/0.4 ML INJ SUB-Q SCH (11:29)
[2020-02-28] MEDS: TICAGRELOR 90 MG TAB PO SCH ×2 (11:29→21:00)
--- NOTE | 2020-02-29 08:23 | Progress Note ---
Subjective Date of service: 02/29/20 Principal diagnosis: CVA with left nondominant hemiparesis Interval history: 64-year-old male who was in his normal state of health until he developed acute onset of weakness and facial droop. He was taken to the ER on 02/11/2020. He was worked up and diagnosed with a right sided MCA/ICA occlusion and was transferred for neuro intervention and underwent thrombectomy on 02/11/2020. After thrombectomy he had a slight improvement in his function. He developed a widespread rash was possibly related to medications that were subsequently stopped. Blood pressure was variable and apparently his home dose of HCTZ was reduced at one-point and he continues on that decreased dose currently. Will need to monitor his blood pressure closely and adjust medications as needed to keep him normotensive. Patient also had dysphagia and was evaluated by speech therapy which started him on a modified diet. We will monitor the patient closely for any issues with dehydration and are aspiration. Modified barium study as needed in order to prove his ability to take in a higher level diet vitals were incidentally found on a CT and an ultrasound showed a 3.7 hyp ervascular TR 3 nodule in the right mid thyroid that meets criteria for biopsy. Patient will need to follow-up with endocrinology at discharge for further biopsy and work-up. Patient did have some higher glucose values during his stay at the outside hospital and hemoglobin A1c was slightly elevated at 6.6. CTA performed at OSH showed no significant stenosis involving the cervical carotid and vertebral arteries. States he had the previously seen occluded right internal carotid artery has been reestablished with no occlusion or high- grade stenosis. MRI brain on 02/11/2010 shows right MCA distribution infarct involving the caudate nucleus and ganglion region in the right parietal area and right frontal region. No significant mass-effect or hemorrhage identified. Interval History: Patient is participating in therapy and making reasonable progress. Taking rest breaks as needed. +BM. Denies pain, palpitations, dyspnea, cough, N/V, or joint pain. Notified by nursing of an abdominal ooze at the Lovenox site. Lovenox was discontinued. Patient is on aspirin and Brilinta. Apparently the oozing continued overnight and the dressing was changed several times. Dressing intact this morning upon inspection. Discussed with patient and nursing that we will remove it again at this afternoon to ensure bleeding has subsided. Patient refused labs this morning, so I am unable to confirm any significant decrease in hemoglobin. Will attempt recheck tomorrow as I do not suspect that a large amount of blood was lost. CVA: Continue secondary stroke prevention measures.No further signs of neurologic decline, shoulder sublux, shoulder-hand syndrome, stroke recrudescence, bowel or bladder issues. Patient is having issues with cognitive deficits and is not accepting of this. Participation seems to be better with speech therapy after our previous conversation. Patient utilizing AFO for left lower extremity to improve ability to ambulate and decreased propensity for falls being that he does have weakness when not concentrating on the left side. Also discussed with OT and patient about utilizing CIMT (constraint induced movement therapy) in order to improve the patient's function of the left upper extremity. 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 Cognitive deficits: We will continue working with the patient to improve cognitive abilities and or compensatory strategies. Attempting to utilize all 3 therapies and nursing to help improve the patient's cognition and his recognition of his cognitive deficits after the stroke. After our conversation previously as well as multiple interventions by all involved, it does seem the patient is realizing and excepting more more that he does have some cognitive changes since the stroke. We will continue to work with him as we move forward. Dysphagia: MBS on 02/22 without signs of pharyngeal stasis, aspiration or laryngeal penetration. Diet upgraded to regular/thin liquids. Patient does have premature spillage with all consistencies. Resolved Dysarthria: Stable without any worsening of symptoms. Continue speech therapy to improve ability to enunciate and communicate well. Hypertension: Goal SBP less than 140, patient doing fairly well on current dosing regimen. Will need to consider options outside of those already used at outside facility as patient had a rash with unknown origin but was suspected to be one of the agents used for blood pressure control or potassium replacement. Bleeding at Lovenox injection site: Continue to monitor with dressing in place. Recheck this afternoon for cessation. Labs to be drawn in the morning as patient refused them this morning. Lovenox stopped and SCDs placed Rash: Patient tolerating steroid use well, did have expected spike in leukocytosis which has since normalized but no fever noted. Will monitor and work-up if patient develops fever or other signs or symptoms of infection. Atarax available for pruritus which seems to be improving. Almost resolved, continually improving Constipation: Improved with bowel medications. Oral bisacodyl started on a scheduled basis. Discussed continuing medications as needed to avoid ongoing issues with constipation in the near future. Patient discussed in team conference, is making decent progress however does seem to be having issues with motivation at times and mood. 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 Will monitor for further issues and will likely look to start him on something for depression over the next few days as it does seem to be interfering with therapy at this point. From conversation between his and speech therapy this also may be due in part to his personality. Patient still has a good bit of recovery that he can make in this setting and would like to continue working with him as long as he is putting forth the effort in order to get the return. We will see if we can extend out to about 18 days total pending his recovery, discharge sooner if he starts to plateau or stops putting forth effort. All records, vitals, labs and medications were reviewed. No other issues per patient, nursing or therapy. Patient was discussed with all therapies and nursing. In total 32 minutes was utilized with more than 50% of this counseling and coordinating care. Complexity of patient involved consideration and determination to utilize CIMT for functional gains in the left upper extremity as well as discussing with therapies other types of therapeutic interventions to improve not only cognitive functioning but physical functioning of the left hemiplegic side. Objective - Exam Narrative Exam: MUSCULOSKELETAL SPECIALTY EXAM CONSTITUTIONAL: Well developed, well nourished, appropriately groomed, thin. RIGHT hand dominant. RESPIRATORY: Clear to auscultation bilaterally, no increased work of breathing CARDIOVASCULAR: Regular Rate/ Rhythm, no swelling, edema or tenderness in BUE or BLE. All extremities warm. GI: + bowel sounds, soft, NTTP, nondistended. INTEGUMENTARY: Oozing from Lovenox injection site, bandage placed. widespread rash on torso and upper extremities, improving and almost resolved. Scattered mild bruising. Otherwise, normal, no lesion, masses noted in extremities. MUSCULOSKELETAL: BUE and BLE normal without defect, crepitus, subluxation, effusion, arthritic changes or TTP. Seem to be some inattention to the left side on initial exam for strength patient had difficulty but with some concentration, he was able to improve his strength on his left extremities. R 4+/5 L 3 - 4- /5 ROM normal on the right, slight decreased on the left Tone within normal limits NEURO: CN VII : Left facial droop Cognitive deficits noted. Sensation intact in all extremities without extinction. No tremor noted in 4 extremities. Follows 2 step commands. Aphasia not appreciated Dysarthria present Dysphagia appreciated Neglect possibly present on the left with slight inattention POSTURE and GAIT: Sitting posture good. Balance poor to fair and gait fair, loss of balance and sequencing issues. PSYCH: Alert, oriented x3, affect appears flattened, tearful at times. Insight appears intact. - Constitutional Vitals: Vital Signs - 12hr 02/28/20 23:31 Temperature 97.4 F L Pulse Rate 90 Respiratory 16 Rate Blood Pressure 111/67 O2 Sat by Pulse 96 Oximetry - Allied health notes Allied health notes reviewed: nursing, PT, ST, OT FIMS assessment as documented by PT/OT/ST: Locomotion- walk/wheelchair Ambulation Distance 10 - Labs CBC & Chem 7: 02/28/20 08:51 02/28/20 08:51 Labs: Laboratory Results - last 72 hr 02/26/20 02/27/20 02/27/20 06:46 08:20 08:20 WBC 8.4 RBC 3.85 Hgb 13.3 Hct 38.5 MCV 100 H MCH 35 H MCHC 35 H RDW 15.9 H Plt Count 506 H Sodium 132 L D Potassium 3.8 4.0 Chloride 98.2 Carbon Dioxide 25 D Anion Gap 13 BUN 15 Creatinine 0.9 Estimated GFR > 60 BUN/Creatinine Ratio 17 Glucose 102 H Calcium 9.0 02/28/20 02/28/20 08:51 08:51 WBC 8.9 RBC 3.92 Hgb 13.6 Hct 39.4 MCV 101 H MCH 35 H MCHC 35 H RDW 15.5 H Plt Count 553 H Sodium 137 Potassium 3.7 Chloride 96.6 L Carbon Dioxide 33 H D Anion Gap 11 BUN 15 Creatinine 0.9 Estimated GFR > 60 BUN/Creatinine Ratio 17 Glucose 107 H Calcium 9.2 Assessment and Plan CVA with left nondominant hemiparesis: Continue secondary stroke prevention. Monitor for recrudescence, post stroke depression, shoulder-hand syndrome, shoulder sublux, worsening symptoms associated with dysphagia and dysarthtria, bowel and bladder issues. Discussed with patient diagnosis and coverage. Of CVA. We will continue to monitor and educate as time goes on. No driving until patient follows up with neurologist and is cleared. May need to start medication for depression, will continue to monitor and look to start over the next day or 2. We will start CIMT in order to improve left upper extremity function. Utilizing AFO on left lower extremity. Patient will need to follow-up with neurology at discharge. Patient will need to follow-up with Dr. Morales (neurosurgery) in approximately 1 month [phone]. Dysphagia: Advance to regular diet. MBS showed spillage but no aspiration. Dysarthria: Continue speech therapy for improvement of ability to enunciate and communicate. Hypertension: Continue medications and adjust as needed for normotension. Goal SBP less than 140. Avoid hypotension Rash: Patient developedat outside hospital. Suspected offending medications (Norvasc and losartan) were discontinued. Patient was given Atarax and Solu- Medrol. Patient still has itching and rash, will continue oral steroids and Atarax for symptom relief. Constipation: Improved with medications. We will continue as needed medications and monitor for improvement. Positive flatus denies nausea and vomiting. Lovenox injection site bleeding: Lovenox stopped, SCDs placed, bandaged. Monitor for resolution Cognitive deficits: Difficult for the patient to accept. Long conversation with the patient and family today, hope to see better participation on speech therapy activities going forward now that we have explained the magnitude of the deficits. Seems to be working better with speech therapy now after our conversation. Have discussed with PROJECT ASSISTANT, OT, PT and nursing about strategies to help improve patient's recognition of cognitive deficits and to improve his cognitive function. ADL dysfunction: OT will work on improving ability to perform ADLs (including assistive devices) to increase independence and decrease caregiver burden and improve functional transfers and mobility training. Difficulty walking: PT will work on gait training and proper use of assistive devices and advance as appropriate to use of stairs and outside ambulation on uneven surfaces. Unsteadiness on feet: PT will work on improving static and dynamic sitting and standing balance as well as proper use of assistive devices to decrease risk of falls. Abnormality of gait: PT will work to improve safety and efficiency of gait through neuromotor training and gait training along with instruction on proper use of assistive devices. Muscle weakness: PT & OT will work on strengthening exercises to improve functional strength including mixture of closed and open kinetic chain exercises. Debility: PT & OT will work on improving overall functional status to improve participation with ADLs, mobility and social involvement. Fatigue: PT & OT will work on improving endurance through aerobic exercises and therapeutic activity while monitoring patients tolerance for activity and vital signs as needed. DVT ppx: Lovenox stopped due to continued bleeding at injection site, SCDs placed Pain: Continue physical modalities in therapy and pain medications as needed to achieve functional pain control. Sleep: Monitor and address as needed. Bowel: Monitor and address as needed. Appetite: Monitor and address as needed. Discharge planning: Pending therapy progress and care plan meeting. Will continue discussion with therapy team, SW, patient and family. Restrictions/ Precautions: Falls, aspiration WB status: FWB Functional Hx: ADLs: Independent Cognition: Independent Mobility: No AD Barriers to Discharge: Decreased mobility and ability to perform self care, balance deficits, weakness Estimated Length of Stay: 14-18 days Discharge Destination: Home with family
[2020-02-29] MEDS: hydroCHLOROthiazide 12.5 MG CAP PO SCH (10:53)
[2020-02-29] MEDS: TICAGRELOR 90 MG TAB PO SCH ×2 (10:53→23:10)
[2020-02-29] MEDS: ASPIRIN EC 81 MG TAB PO SCH (10:53)
[2020-02-29 15:19] LABS: Hematocrit 37.4 % (35.5-45.6); Hemoglobin 12.5 gm/dl (11.8-15.2); Mean Corpuscular HGB Conc 34 % (32-34); Mean Corpuscular Volume 100 fl (84-94); Platelet Count 488 K/mm3 (140-440); Red Blood Count 3.73 M/mm3 (3.65-5.03); Red Cell Distribution Width 15.7 % (13.2-15.2)
[2020-02-29 15:41] LABS: BUN/Creatinine Ratio 18; Blood Urea Nitrogen 18 mg/dL (9-20); Calcium 9.2 mg/dL (8.4-10.2); Hemolysis Index 2
--- NOTE | 2020-03-01 11:15 | Progress Note ---
Subjective Date of service: 03/01/20 Principal diagnosis: CVA with left nondominant hemiparesis Interval history: 64-year-old male who was in his normal state of health until he developed acute onset of weakness and facial droop. He was taken to the ER on 02/11/2020. He was worked up and diagnosed with a right sided MCA/ICA occlusion and was transferred for neuro intervention and underwent thrombectomy on 02/11/2020. After thrombectomy he had a slight improvement in his function. He developed a widespread rash was possibly related to medications that were subsequently stopped. Blood pressure was variable and apparently his home dose of HCTZ was reduced at one-point and he continues on that decreased dose currently. Will need to monitor his blood pressure closely and adjust medications as needed to keep him normotensive. Patient also had dysphagia and was evaluated by speech therapy which started him on a modified diet. We will monitor the patient closely for any issues with dehydration and are aspiration. Modified barium study as needed in order to prove his ability to take in a higher level diet vitals were incidentally found on a CT and an ultrasound showed a 3.7 hyp ervascular TR 3 nodule in the right mid thyroid that meets criteria for biopsy. Patient will need to follow-up with endocrinology at discharge for further biopsy and work-up. Patient did have some higher glucose values during his stay at the outside hospital and hemoglobin A1c was slightly elevated at 6.6. CTA performed at OSH showed no significant stenosis involving the cervical carotid and vertebral arteries. States he had the previously seen occluded right internal carotid artery has been reestablished with no occlusion or high- grade stenosis. MRI brain on 02/11/2010 shows right MCA distribution infarct involving the caudate nucleus and ganglion region in the right parietal area and right frontal region. No significant mass-effect or hemorrhage identified. Interval History: Patient is participating in therapy and making reasonable progress. Taking rest breaks as needed. +BM. Slight pain noted on left lower extremity distal to the head of the fibula. Otherwise, denies pain, palpitations, dyspnea, cough, N/V, or joint pain. Oozing from Lovenox shot has subsided. CVA: Continue secondary stroke prevention measures.No further signs of neurologic decline, shoulder sublux, shoulder-hand syndrome, stroke recrudescence, bowel or bladder issues. Patient is having issues with cognitive deficits and is not accepting of this. Participation seems to be better with speech therapy after our previous conversation. Patient utilizing AFO for left lower extremity to improve ability to ambulate and decreased propensity for falls being that he does have weakness when not concentrating on the left side. Also discussed with OT and patient about utilizing CIMT (constraint induced movement therapy) in order to improve the patient's function of the left upper extremity. 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 Patient currently denies depression and wants to delay starting any treatment. Reinforced with him that we will monitor for worsening signs/symptoms and discuss further if needed. Cognitive deficits: We will continue working with the patient to improve cognitive abilities and or compensatory strategies. Attempting to utilize all 3 therapies and nursing to help improve the patient's cognition and his recognition of his cognitive deficits after the stroke. After our conversation previously as well as multiple interventions by all involved, it does seem the patient is realizing and accepting more more that he does have some cognitive changes since the stroke. We will continue to work with him as we move forward. Dysphagia: MBS on 02/22 without signs of pharyngeal stasis, aspiration or laryngeal penetration. Diet upgraded to regular/thin liquids. Patient does have premature spillage with all consistencies. Resolved Dysarthria: Stable without any worsening of symptoms. Continue speech therapy to improve ability to enunciate and communicate well. Hypertension: Goal SBP less than 140, patient doing fairly well on current dosing regimen. Will need to consider options outside of those already used at outside facility as patient had a rash with unknown origin but was suspected to be one of the agents used for blood pressure control or potassium replacement. Bleeding at Lovenox injection site: Bleeding has subsided. Hemoglobin is stable. Lovenox stopped and SCDs placed Rash: Patient tolerating steroid use well, did have expected spike in leukocytosis which has since normalized but no fever noted. Will monitor and work-up if patient develops fever or other signs or symptoms of infection. Atarax available for pruritus which seems to be improving. Almost resolved, continually improving Constipation: Improved with bowel medications. Oral bisacodyl started on a scheduled basis. Discussed continuing medications as needed to avoid ongoing issues with constipation in the near future. Pain in left lower extremity: Distal to the head of the fibula. Palpable area not resolved with motion of the lower extremity, not consistent with contracture, suspect for possible thrombosis. Doppler ordered All records, vitals, labs and medications were reviewed. No other issues per patient, nursing or therapy. Patient was discussed with all therapies and nursing. Complexity of patient involved consideration and determination to utilize CIMT for functional gains in the left upper extremity as well as discussing with therapies other types of therapeutic interventions to improve not only cognitive functioning but physical functioning of the left hemiplegic side. Objective - Exam Narrative Exam: MUSCULOSKELETAL SPECIALTY EXAM CONSTITUTIONAL: Well developed, well nourished, appropriately groomed, thin. RIGHT hand dominant. RESPIRATORY: Clear to auscultation bilaterally, no increased work of breathing CARDIOVASCULAR: Regular Rate/ Rhythm, no swelling, edema or tenderness in BUE or BLE. All extremities warm. GI: + bowel sounds, soft, NTTP, nondistended. INTEGUMENTARY: Widespread rash on torso and upper extremities, improving and almost resolved. Scattered mild bruising. Otherwise, normal, no lesion, masses noted in extremities. MUSCULOSKELETAL: Tenderness on left lower extremity just distal to head of the fibula. BUE and BLE normal without defect, crepitus, subluxation, effusion, arthritic changes or TTP. Seem to be some inattention to the left side on initial exam for strength patient had difficulty but with some concentration, he was able to improve his strength on his left extremities. R 4+/5 L 3 - 4- /5 ROM normal on the right, slight decreased on the left Tone within normal limits NEURO: CN VII : Left facial droop Sustained clonus at left ankle Cognitive deficits noted. Sensation intact in all extremities without extinction. No tremor noted in 4 extremities. Follows 2 step commands. Aphasia not appreciated Dysarthria present Dysphagia appreciated Neglect possibly present on the left with slight inattention POSTURE and GAIT: Sitting posture good. Balance poor to fair and gait fair, loss of balance and sequencing issues. PSYCH: Alert, oriented x3, affect appears flattened, tearful at times. Insight appears intact. - Constitutional Vitals: Vital Signs - 12hr 03/01/20 08:21 Temperature 97.9 F Pulse Rate 97 H Respiratory 20 Rate Blood Pressure 125/76 O2 Sat by Pulse 96 Oximetry - Allied health notes Allied health notes reviewed: nursing, PT, ST, OT FIMS assessment as documented by PT/OT/ST: Locomotion- walk/wheelchair Ambulation Distance 10 - Labs CBC & Chem 7: 02/29/20 14:35 02/29/20 14:35 Labs: Laboratory Results - last 72 hr 02/28/20 02/28/20 02/29/20 08:51 08:51 14:35 WBC 8.9 10.1 RBC 3.92 3.73 Hgb 13.6 12.5 Hct 39.4 37.4 MCV 101 H 100 H MCH 35 H 34 H MCHC 35 H 34 RDW 15.5 H 15.7 H Plt Count 553 H 488 H Sodium 137 Potassium 3.7 Chloride 96.6 L Carbon Dioxide 33 H D Anion Gap 11 BUN 15 Creatinine 0.9 Estimated GFR > 60 BUN/Creatinine Ratio 17 Glucose 107 H Calcium 9.2 02/29/20 14:35 WBC RBC Hgb Hct MCV MCH MCHC RDW Plt Count Sodium 136 L Potassium 3.7 Chloride 98.0 Carbon Dioxide 32 H Anion Gap 10 BUN 18 Creatinine 1.0 Estimated GFR > 60 BUN/Creatinine Ratio 18 Glucose 117 H Calcium 9.2 Assessment and Plan CVA with left nondominant hemiparesis: Continue secondary stroke prevention. Monitor for recrudescence, post stroke depression, shoulder-hand syndrome, shoulder sublux, worsening symptoms associated with dysphagia and dysarthtria, bowel and bladder issues. Discussed with patient diagnosis and coverage. Of CVA. We will continue to monitor and educate as time goes on. No driving until patient follows up with neurologist and is cleared. May need to start medication for depression, will continue to monitor and look to start over the next day or 2. We will start CIMT in order to improve left upper extremity function. Utilizing AFO on left lower extremity. Patient will need to follow-up with neurology at discharge. Patient will need to follow-up with Dr. Morales (neurosurgery) in approximately 1 month [phone]. Dysphagia: Advance to regular diet. MBS showed spillage but no aspiration. Dysarthria: Continue speech therapy for improvement of ability to enunciate and communicate. Hypertension: Continue medications and adjust as needed for normotension. Goal SBP less than 140. Avoid hypotension Rash: Patient developedat outside hospital. Suspected offending medications (Norvasc and losartan) were discontinued. Patient was given Atarax and Solu- Medrol. Patient still has itching and rash, will continue oral steroids and Atarax for symptom relief. Constipation: Improved with medications. We will continue as needed medications and monitor for improvement. Positive flatus denies nausea and vomiting. Lovenox injection site bleeding: Lovenox stopped, SCDs placed. Resolved Cognitive deficits: Difficult for the patient to accept. Long conversation with the patient and family today, hope to see better participation on speech therapy activities going forward now that we have explained the magnitude of the deficits. Seems to be working better with speech therapy now after our conversation. Have discussed with [employer], OT, PT and nursing about strategies to help improve patient's recognition of cognitive deficits and to improve his cognitive function. Pain left lower extremity: Palpable area just distal to head of the fibula. Doppler to rule out thrombosis. ADL dysfunction: OT will work on improving ability to perform ADLs (including assistive devices) to increase independence and decrease caregiver burden and improve functional transfers and mobility training. Difficulty walking: PT will work on gait training and proper use of assistive devices and advance as appropriate to use of stairs and outside ambulation on uneven surfaces. Unsteadiness on feet: PT will work on improving static and dynamic sitting and standing balance as well as proper use of assistive devices to decrease risk of falls. Abnormality of gait: PT will work to improve safety and efficiency of gait through neuromotor training and gait training along with instruction on proper use of assistive devices. Muscle weakness: PT & OT will work on strengthening exercises to improve functional strength including mixture of closed and open kinetic chain exercises. Debility: PT & OT will work on improving overall functional status to improve participation with ADLs, mobility and social involvement. Fatigue: PT & OT will work on improving endurance through aerobic exercises and therapeutic activity while monitoring patients tolerance for activity and vital signs as needed. DVT ppx: Lovenox stopped due to continued bleeding at injection site, SCDs placed Pain: Continue physical modalities in therapy and pain medications as needed to achieve functional pain control. Sleep: Monitor and address as needed. Bowel: Monitor and address as needed. Appetite: Monitor and address as needed. Discharge planning: Pending therapy progress and care plan meeting. Will continue discussion with therapy team, SW, patient and family. Restrictions/ Precautions: Falls, aspiration WB status: FWB Functional Hx: ADLs: Independent Cognition: Independent Mobility: No AD Barriers to Discharge: Decreased mobility and ability to perform self care, balance deficits, weakness Estimated Length of Stay: 14-18 days Discharge Destination: Home with family
--- NOTE | 2020-03-01 13:41 | Vascular Lab Report ---
DUPLEX DOPPLER LOWER EXTREMITY VEINS, LEFT INDICATION / CLINICAL INFORMATION: Left lower leg pain. TECHNIQUE: Duplex doppler imaging was performed through the veins of the left lower extremity using venous compr ession and other maneuvers. COMPARISON: None available. FINDINGS: LEFT COMMON FEMORAL VEIN: Negative. LEFT FEMORAL VEIN: Negative. LEFT POPLITEAL VEIN: Negative. LEFT CALF VEINS: Negative. ADDITIONAL FINDINGS: None. IMPRESSION: 1. No sonographic evidence for DVT in the left lower extremity. Signer Name: Miguel Eller MD Signed: 03/01/2020 1:36 PM Workstation Name: [id number]
[2020-03-01] MEDS: TICAGRELOR 90 MG TAB PO SCH ×2 (15:15→22:32)
[2020-03-01] MEDS: hydroCHLOROthiazide 12.5 MG CAP PO SCH (15:16)
[2020-03-01] MEDS: ASPIRIN EC 81 MG TAB PO SCH (15:16)
--- NOTE | 2020-03-02 09:32 | Progress Note ---
Subjective Date of service: 03/02/20 Principal diagnosis: CVA with left nondominant hemiparesis Interval history: 64-year-old male who was in his normal state of health until he developed acute onset of weakness and facial droop. He was taken to the ER on 02/11/2020. He was worked up and diagnosed with a right sided MCA/ICA occlusion and was transferred for neuro intervention and underwent thrombectomy on 02/11/2020. After thrombectomy he had a slight improvement in his function. He developed a widespread rash was possibly related to medications that were subsequently stopped. Blood pressure was variable and apparently his home dose of HCTZ was reduced at one-point and he continues on that decreased dose currently. Will need to monitor his blood pressure closely and adjust medications as needed to keep him normotensive. Patient also had dysphagia and was evaluated by speech therapy which started him on a modified diet. We will monitor the patient closely for any issues with dehydration and are aspiration. Modified barium study as needed in order to prove his ability to take in a higher level diet vitals were incidentally found on a CT and an ultrasound showed a 3.7 hyp ervascular TR 3 nodule in the right mid thyroid that meets criteria for biopsy. Patient will need to follow-up with endocrinology at discharge for further biopsy and work-up. Patient did have some higher glucose values during his stay at the outside hospital and hemoglobin A1c was slightly elevated at 6.6. CTA performed at OSH showed no significant stenosis involving the cervical carotid and vertebral arteries. States he had the previously seen occluded right internal carotid artery has been reestablished with no occlusion or high- grade stenosis. MRI brain on 02/11/2010 shows right MCA distribution infarct involving the caudate nucleus and ganglion region in the right parietal area and right frontal region. No significant mass-effect or hemorrhage identified. Interval History: Patient is participating in therapy and making reasonable progress. Taking rest breaks as needed. +BM. Otherwise, denies pain, palpitations, dyspnea, cough, N/V, or joint pain. Epistaxis today CVA: Continue secondary stroke prevention measures.No further signs of neurologic decline, shoulder sublux, shoulder-hand syndrome, stroke recrudescence, bowel or bladder issues. Patient is having issues with cognitive deficits and is not accepting of this. Participation seems to be better with speech therapy after our previous conversation. Patient utilizing AFO for left lower extremity to improve ability to ambulate and decreased propensity for falls being that he does have weakness when not concentrating on the left side. Also discussed with OT and patient about utilizing CIMT (constraint induced movement therapy) in order to improve the patient's function of the left upper extremity. 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 Patient currently denies depression and wants to delay starting any treatment. Reinforced with him that we will monitor for worsening signs/symptoms and discuss further if needed. Cognitive deficits: We will continue working with the patient to improve cognitive abilities and or compensatory strategies. Attempting to utilize all 3 therapies and nursing to help improve the patient's cognition and his recognition of his cognitive deficits after the stroke. After our conversation previously as well as multiple interventions by all involved, it does seem the patient is realizing and accepting more more that he does have some cognitive changes since the stroke. We will continue to work with him as we move forward. Dysphagia: MBS on 02/22 without signs of pharyngeal stasis, aspiration or laryngeal penetration. Diet upgraded to regular/thin liquids. Patient does have premature spillage with all consistencies. Resolved Dysarthria: Stable without any worsening of symptoms. Continue speech therapy to improve ability to enunciate and communicate well. Hypertension: Goal SBP less than 140, patient doing fairly well on current dosing regimen. Will need to consider options outside of those already used at outside facility as patient had a rash with unknown origin but was suspected to be one of the agents used for blood pressure control or potassium replacement. Bleeding at Lovenox injection site, now epistaxis: Bleeding has subsided. Hemoglobin is stable. Lovenox stopped and SCDs placed. Patient denies recent history of epistaxis but does state that when he was in his teens he had them fairly frequently. Have stopped aspirin and Brilinta for 2 days and will restart on Friday, orders already placed. Bleeding has mostly subsided. May need to consider aspirin only regimen after 30 days due to frequency of bleeding episodes. Rash: Steroid utilized for short period. Atarax available for pruritus . Resolved Constipation: Improved with bowel medications. Oral bisacodyl started on a scheduled basis. Discussed continuing medications as needed to avoid ongoing issues with constipation in the near future. Pain in left lower extremity: Distal to the head of the fibula. Palpable area not resolved with motion of the lower extremity, not consistent with contracture, suspect for possible thrombosis, Doppler ordered and was negative. Seems improved slightly today. Monitor All records, vitals, labs and medications were reviewed. No other issues per patient, nursing or therapy. Patient was discussed with all therapies and nursing. Complexity of patient involved consideration and determination to utilize CIMT for functional gains in the left upper extremity as well as discussing with therapies other types of therapeutic interventions to improve not only cognitive functioning but physical functioning of the left hemiplegic side. Objective - Exam Narrative Exam: MUSCULOSKELETAL SPECIALTY EXAM CONSTITUTIONAL: Well developed, well nourished, appropriately groomed, thin. RIGHT hand dominant. Nasal: Right nostril with bloody discharge, slight oozing higher in the nasal passage but mostly stopped. RESPIRATORY: Clear to auscultation bilaterally, no increased work of breathing CARDIOVASCULAR: Regular Rate/ Rhythm, no swelling, edema or tenderness in BUE or BLE. All extremities warm. GI: + bowel sounds, soft, NTTP, nondistended. INTEGUMENTARY: Widespread rash on torso and upper extremities, improving and almost resolved. Scattered mild bruising. Otherwise, normal, no lesion, masses noted in extremities. MUSCULOSKELETAL: Tenderness on left lower extremity just distal to head of the fibula has decreased. BUE and BLE normal without defect, crepitus, subluxation, effusion, arthritic changes or TTP. Seem to be some inattention to the left side on initial exam for strength patient had difficulty but with some concentration, he was able to improve his strength on his left extremities. R 4+/5 L 3 - 4- /5 ROM normal on the right, slight decreased on the left Tone within normal limits NEURO: CN VII : Left facial droop Sustained clonus at left ankle Cognitive deficits noted. Sensation intact in all extremities without extinction. No tremor noted in 4 extremities. Follows 2 step commands. Aphasia not appreciated Dysarthria present Dysphagia appreciated Neglect possibly present on the left with slight inattention POSTURE and GAIT: Sitting posture good. Balance poor to fair and gait fair, loss of balance and sequencing issues. PSYCH: Alert, oriented x3, affect appears flattened, tearful at times. Insight appears intact. - Constitutional Vitals: Vital Signs - 12hr 03/01/20 03/02/20 22:20 07:38 Temperature 98.3 F Pulse Rate 99 H Pulse Rate [ 94 H Apical] Respiratory 16 20 Rate Blood Pressure 122/83 O2 Sat by Pulse 95 98 Oximetry - Allied health notes Allied health notes reviewed: nursing, PT, ST, OT FIMS assessment as documented by PT/OT/ST: Locomotion- walk/wheelchair Ambulation Distance 10 - Labs CBC & Chem 7: 02/29/20 14:35 02/29/20 14:35 Labs: Laboratory Results - last 72 hr 02/28/20 02/29/20 02/29/20 08:51 14:35 14:35 WBC 10.1 RBC 3.73 Hgb 12.5 Hct 37.4 MCV 100 H MCH 34 H MCHC 34 RDW 15.7 H Plt Count 488 H Sodium 137 136 L Potassium 3.7 3.7 Chloride 96.6 L 98.0 Carbon Dioxide 33 H D 32 H Anion Gap 11 10 BUN 15 18 Creatinine 0.9 1.0 Estimated GFR > 60 > 60 BUN/Creatinine Ratio 17 18 Glucose 107 H 117 H Calcium 9.2 9.2 Assessment and Plan CVA with left nondominant hemiparesis: Continue secondary stroke prevention. Monitor for recrudescence, post stroke depression, shoulder-hand syndrome, shoulder sublux, worsening symptoms associated with dysphagia and dysarthtria, bowel and bladder issues. Discussed with patient diagnosis and coverage. Of CVA. We will continue to monitor and educate as time goes on. No driving until patient follows up with neurologist and is cleared. May need to start medication for depression, will continue to monitor and look to start over the next day or 2. We will start CIMT in order to improve left upper extremity function. Utilizing AFO on left lower extremity. Patient will need to follow-up with neurology at discharge. Patient will need to follow-up with Dr. Morales (neurosurgery) in approximately 1 month [phone]. Dysphagia: Advance to regular diet. MBS showed spillage but no aspiration. Dysarthria: Continue speech therapy for improvement of ability to enunciate and communicate. Hypertension: Continue medications and adjust as needed for normotension. Goal SBP less than 140. Avoid hypotension Rash: Patient developedat outside hospital. Suspected offending medications (Norvasc and losartan) were discontinued. Patient was given Atarax and Solu- Medrol. Patient still has itching and rash, will continue oral steroids and Atarax for symptom relief. Constipation: Improved with medications. We will continue as needed medications and monitor for improvement. Positive flatus denies nausea and vomiting. Lovenox injection site bleeding: Lovenox stopped, SCDs placed. Resolved Epistaxis: Aspirin and Brilinta held for 2 days, restarted on Friday (orders already placed for restart). Will review records, but may need to discontinue Brilinta after 30 days given propensity for bleeding. Cognitive deficits: Difficult for the patient to accept. Long conversation with the patient and family today, hope to see better participation on speech therapy activities going forward now that we have explained the magnitude of the deficits. Seems to be working better with speech therapy now after our conversation. Have discussed with DOCUMENTATION LIAISON, OT, PT and nursing about strategies to help improve patient's recognition of cognitive deficits and to improve his cognitive function. Pain left lower extremity: Palpable area just distal to head of the fibula. Doppler to rule out thrombosis which was negative. Seems somewhat improved today ADL dysfunction: OT will work on improving ability to perform ADLs (including assistive devices) to increase independence and decrease caregiver burden and improve functional transfers and mobility training. Difficulty walking: PT will work on gait training and proper use of assistive devices and advance as appropriate to use of stairs and outside ambulation on uneven surfaces. Unsteadiness on feet: PT will work on improving static and dynamic sitting and standing balance as well as proper use of assistive devices to decrease risk of falls. Abnormality of gait: PT will work to improve safety and efficiency of gait through neuromotor training and gait training along with instruction on proper use of assistive devices. Muscle weakness: PT & OT will work on strengthening exercises to improve functional strength including mixture of closed and open kinetic chain exercises. Debility: PT & OT will work on improving overall functional status to improve participation with ADLs, mobility and social involvement. Fatigue: PT & OT will work on improving endurance through aerobic exercises and therapeutic activity while monitoring patients tolerance for activity and vital signs as needed. DVT ppx: Lovenox stopped due to continued bleeding at injection site, SCDs placed Pain: Continue physical modalities in therapy and pain medications as needed to achieve functional pain control. Sleep: Monitor and address as needed. Bowel: Monitor and address as needed. Appetite: Monitor and address as needed. Discharge planning: Pending therapy progress and care plan meeting. Will continue discussion with therapy team, SW, patient and family. Restrictions/ Precautions: Falls, aspiration WB status: FWB Functional Hx: ADLs: Independent Cognition: Independent Mobility: No AD Barriers to Discharge: Decreased mobility and ability to perform self care, balance deficits, weakness Estimated Length of Stay: 14-18 days Discharge Destination: Home with family
[2020-03-02] MEDS: hydroCHLOROthiazide 12.5 MG CAP PO SCH (11:42)
[2020-03-02] MEDS: hydrOXYzine HCL 25 MG TAB PO PRN (22:16)
--- NOTE | 2020-03-03 08:48 | Progress Note ---
Subjective Date of service: 03/03/20 Principal diagnosis: CVA with left nondominant hemiparesis Interval history: 64-year-old male who was in his normal state of health until he developed acute onset of weakness and facial droop. He was taken to the ER on 02/11/2020. He was worked up and diagnosed with a right sided MCA/ICA occlusion and was transferred for neuro intervention and underwent thrombectomy on 02/11/2020. After thrombectomy he had a slight improvement in his function. He developed a widespread rash was possibly related to medications that were subsequently stopped. Blood pressure was variable and apparently his home dose of HCTZ was reduced at one-point and he continues on that decreased dose currently. Will need to monitor his blood pressure closely and adjust medications as needed to keep him normotensive. Patient also had dysphagia and was evaluated by speech therapy which started him on a modified diet. We will monitor the patient closely for any issues with dehydration and are aspiration. Modified barium study as needed in order to prove his ability to take in a higher level diet vitals were incidentally found on a CT and an ultrasound showed a 3.7 hyp ervascular TR 3 nodule in the right mid thyroid that meets criteria for biopsy. Patient will need to follow-up with endocrinology at discharge for further biopsy and work-up. Patient did have some higher glucose values during his stay at the outside hospital and hemoglobin A1c was slightly elevated at 6.6. CTA performed at OSH showed no significant stenosis involving the cervical carotid and vertebral arteries. States he had the previously seen occluded right internal carotid artery has been reestablished with no occlusion or high- grade stenosis. MRI brain on 02/11/2010 shows right MCA distribution infarct involving the caudate nucleus and ganglion region in the right parietal area and right frontal region. No significant mass-effect or hemorrhage identified. Interval History: Patient is participating in therapy and making reasonable progress. Taking rest breaks as needed. +BM. Otherwise, denies pain, palpitations, dyspnea, cough, N/V, or joint pain. CVA: Continue secondary stroke prevention measures.No further signs of neurologic decline, shoulder sublux, shoulder-hand syndrome, stroke recrudescence, bowel or bladder issues. Patient is having issues with cognitive deficits and is not accepting of this. Participation seems to be better with speech therapy after our previous conversation. Patient utilizing AFO for left lower extremity to improve ability to ambulate and decreased propensity for falls being that he does have weakness when not concentrating on the left side. 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 Patient currently denies depression and wants to delay starting any treatment. Reinforced with him that we will monitor for worsening signs/symptoms and discuss further if needed. Cognitive deficits: We will continue working with the patient to improve cognitive abilities and or compensatory strategies. Attempting to utilize all 3 therapies and nursing to help improve the patient's cognition and his recog nition of his cognitive deficits after the stroke. After our conversation previously as well as multiple interventions by all involved, it does seem the patient is realizing and accepting more more that he does have some cognitive changes since the stroke. We will continue to work with him as we move forward. Dysphagia: MBS on 02/22 without signs of pharyngeal stasis, aspiration or laryngeal penetration. Diet upgraded to regular/thin liquids. Patient does have premature spillage with all consistencies. Resolved Dysarthria: Stable without any worsening of symptoms. Continue speech therapy to improve ability to enunciate and communicate well. Hypertension: Goal SBP less than 140, patient doing fairly well on current dosing regimen. Will need to consider options outside of those already used at outside facility as patient had a rash with unknown origin but was suspected to be one of the agents used for blood pressure control or potassium replacement. Bleeding at Lovenox injection site, now epistaxis: Bleeding has subsided. Hemoglobin is stable. Lovenox stopped and SCDs placed. Patient denies recent history of epistaxis but does state that when he was in his teens he had them fairly frequently. Have stopped aspirin and Brilinta for 2 days and will restart on Friday, orders already placed. Bleeding has mostly subsided. May need to consider aspirin only regimen after 30 days due to frequency of bleeding episodes. Bleeding has stopped. Continue with plan to restart aspirin and Brilinta tomorrow and monitor. Rash: Steroid utilized for short period. Atarax available for pruritus . Slight episode of itching last night, area the patient pointed out to me was not evident for significant rash. Constipation: Improved with bowel medications. Oral bisacodyl started on a scheduled basis. Discussed continuing medications as needed to avoid ongoing issues with constipation in the near future. Pain in left lower extremity: Distal to the head of the fibula. Palpable area not resolved with motion of the lower extremity, not consistent with contracture, suspect for possible thrombosis, Doppler ordered and was negative. Seems resolved, patient did not even remember that it had been hurting this morning. Monitor All records, vitals, labs and medications were reviewed. No other issues per patient, nursing or therapy. Patient was discussed with all therapies and nursing. Contacted today and discussed patient's progress, prognosis and likely level of capability once he is ready to discharge home, strategies she will need to utilize in order to assist him and keep him safe at home, therapy options and DME requirements. Also discussed patient's progress with each of the therapy disciplines and his medical condition in general. In total, 35 minutes was spent counseling and coordinating care with the in addition to 10 minutes with the and additional time for documentation. Objective - Exam Narrative Exam: MUSCULOSKELETAL SPECIALTY EXAM CONSTITUTIONAL: Well developed, well nourished, appropriately groomed, thin. RIGHT hand dominant. Nasal: No evidence of blood in the nasal passages today RESPIRATORY: Clear to auscultation bilaterally, no increased work of breathing CARDIOVASCULAR: Regular Rate/ Rhythm, no swelling, edema or tenderness in BUE or BLE. All extremities warm. GI: + bowel sounds, soft, NTTP, nondistended. INTEGUMENTARY: Rash has cleared. Scattered mild bruising. Otherwise, normal, no lesion, masses noted in extremities. MUSCULOSKELETAL: BUE and BLE normal without defect, crepitus, subluxation, effusion, arthritic c hanges or TTP. Seem to be some inattention to the left side on initial exam for strength patient had difficulty but with some concentration, he was able to improve his strength on his left extremities. R 4+/5 L 3 - 4- /5 ROM normal on the right, slight decreased on the left Tone within normal limits NEURO: CN VII : Left facial droop Sustained clonus at left ankle Cognitive deficits noted. Sensation intact in all extremities without extinction. No tremor noted in 4 extremities. Follows 2 step commands. Aphasia not appreciated Dysarthria present Dysphagia appreciated Neglect possibly present on the left with slight inattention POSTURE and GAIT: Sitting posture good. Balance poor to fair and gait fair, loss of balance and sequencing issues, slow shortened steps with hemiwalker PSYCH: Alert, oriented x3, affect appears flattened, tearful at times. Insight appears intact. - Constitutional Vitals: Vital Signs - 12hr 03/02/20 03/02/20 20:39 23:56 Temperature 98.7 F 98.3 F Pulse Rate 99 H 96 H Respiratory 17 17 Rate Blood Pressure 111/74 121/78 O2 Sat by Pulse 98 97 Oximetry - Allied health notes Allied health notes reviewed: nursing, PT, ST, OT FIMS assessment as documented by PT/OT/ST: Locomotion- walk/wheelchair Ambulation Distance 10 - Labs CBC & Chem 7: 02/29/20 14:35 02/29/20 14:35 Labs: Laboratory Results - last 72 hr 02/29/20 02/29/20 14:35 14:35 WBC 10.1 RBC 3.73 Hgb 12.5 Hct 37.4 MCV 100 H MCH 34 H MCHC 34 RDW 15.7 H Plt Count 488 H Sodium 136 L Potassium 3.7 Chloride 98.0 Carbon Dioxide 32 H Anion Gap 10 BUN 18 Creatinine 1.0 Estimated GFR > 60 BUN/Creatinine Ratio 18 Glucose 117 H Calcium 9.2 Assessment and Plan CVA with left nondominant hemiparesis: Continue secondary stroke prevention. Monitor for recrudescence, post stroke depression, shoulder-hand syndrome, shoulder sublux, worsening symptoms associated with dysphagia and dysarthtria, bowel and bladder issues. Discussed with patient diagnosis and coverage. Of CVA. We will continue to monitor and educate as time goes on. No driving until patient follows up with neurologist and is cleared. May need to start medication for depression, will continue to monitor and look to start if needed and if patient agrees We will start CIMT in order to improve left upper extremity function. Utilizing AFO on left lower extremity. Patient will need to follow-up with neurology at discharge. Patient will need to follow-up with Dr. Morales (neurosurgery) in approximately 1 month [phone]. Dysphagia: Advance to regular diet. MBS showed spillage but no aspiration. Dysarthria: Continue speech therapy for improvement of ability to enunciate and communicate. Hypertension: Continue medications and adjust as needed for normotension. Goal SBP less than 140. Avoid hypotension Rash: Patient developedat outside hospital. Suspected offending medications (Norvasc and losartan) were discontinued. Patient was given Atarax and Solu- Medrol. Patient still has itching and rash, will continue oral steroids and Atarax for symptom relief. Constipation: Improved with medications. We will continue as needed medications and monitor for improvement. Positive flatus denies nausea and vomiting. Lovenox injection site bleeding: Lovenox stopped, SCDs placed. Resolved Epistaxis: Aspirin and Brilinta held for 2 days, restarted on Friday (orders already placed for restart). Epistaxis has stopped. Will review records, but may need to discontinue Brilinta after 30 days given propensity for bleeding, review of records did not note stopping Brilinta after 30 days. Will continue as long as patient does not have another bleeding episode, if that does happen will contact neurology. Available notes do not have neurology note from outside hospital and am uncertain of who saw him. Cognitive deficits: Difficult for the patient to accept. Long conversation with the patient and family today, hope to see better participation on speech therapy activities going forward now that we have explained the magnitude of the deficits. Seems to be working better with speech therapy now after our conversation. Have discussed with [employer]WORK [employer]ER, OT, PT and nursing about strategies to h elp improve patient's recognition of cognitive deficits and to improve his cognitive function. Pain left lower extremity: Palpable area just distal to head of the fibula. Doppler to rule out thrombosis which was negative. Seems somewhat improved today ADL dysfunction: OT will work on improving ability to perform ADLs (including assistive devices) to increase independence and decrease caregiver burden and improve functional transfers and mobility training. Difficulty walking: PT will work on gait training and proper use of assistive devices and advance as appropriate to use of stairs and outside ambulation on uneven surfaces. Unsteadiness on feet: PT will work on improving static and dynamic sitting and standing balance as well as proper use of assistive devices to decrease risk of falls. Abnormality of gait: PT will work to improve safety and efficiency of gait through neuromotor training and gait training along with instruction on proper use of assistive devices. Muscle weakness: PT & OT will work on strengthening exercises to improve functional strength including mixture of closed and open kinetic chain exercises. Debility: PT & OT will work on improving overall functional status to improve participation with ADLs, mobility and social involvement. Fatigue: PT & OT will work on improving endurance through aerobic exercises and therapeutic activity while monitoring patients tolerance for activity and vital signs as needed. DVT ppx: Lovenox stopped due to continued bleeding at injection site, SCDs placed Pain: Continue physical modalities in therapy and pain medications as needed to achieve functional pain control. Sleep: Monitor and address as needed. Bowel: Monitor and address as needed. Appetite: Monitor and address as needed. Discharge planning: Pending therapy progress and care plan meeting. Will continue discussion with therapy team, SW, patient and family. Restrictions/ Precautions: Falls, aspiration WB status: FWB Functional Hx: ADLs: Independent Cognition: Independent Mobility: No AD Barriers to Discharge: Decreased mobility and ability to perform self care, balance deficits, weakness Estimated Length of Stay: 14-18 days Discharge Destination: Home with family
[2020-03-03] MEDS: hydroCHLOROthiazide 12.5 MG CAP PO SCH (09:15)
[2020-03-04] MEDS: ASPIRIN EC 81 MG TAB PO SCH (09:09)
[2020-03-04] MEDS: hydroCHLOROthiazide 12.5 MG CAP PO SCH (09:09)
[2020-03-04] MEDS: TICAGRELOR 90 MG TAB PO SCH ×2 (09:09→21:20)
[2020-03-05] MEDS: hydroCHLOROthiazide 12.5 MG CAP PO SCH (09:37)
[2020-03-05] MEDS: TICAGRELOR 90 MG TAB PO SCH ×2 (09:37→21:26)
[2020-03-05] MEDS: ASPIRIN EC 81 MG TAB PO SCH (09:37)
--- NOTE | 2020-03-06 09:00 | Progress Note ---
Subjective Date of service: 03/06/20 Principal diagnosis: CVA with left nondominant hemiparesis Interval history: 64-year-old male who was in his normal state of health until he developed acute onset of weakness and facial droop. He was taken to the ER on 02/11/2020. He was worked up and diagnosed with a right sided MCA/ICA occlusion and was transferred for neuro intervention and underwent thrombectomy on 02/11/2020. After thrombectomy he had a slight improvement in his function. He developed a widespread rash was possibly related to medications that were subsequently stopped. Blood pressure was variable and apparently his home dose of HCTZ was reduced at one-point and he continues on that decreased dose currently. Will need to monitor his blood pressure closely and adjust medications as needed to keep him normotensive. Patient also had dysphagia and was evaluated by speech therapy which started him on a modified diet. We will monitor the patient closely for any issues with dehydration and are aspiration. Modified barium study as needed in order to prove his ability to take in a higher level diet vitals were incidentally found on a CT and an ultrasound showed a 3.7 hyp ervascular TR 3 nodule in the right mid thyroid that meets criteria for biopsy. Patient will need to follow-up with endocrinology at discharge for further biopsy and work-up. Patient did have some higher glucose values during his stay at the outside hospital and hemoglobin A1c was slightly elevated at 6.6. CTA performed at OSH showed no significant stenosis involving the cervical carotid and vertebral arteries. States he had the previously seen occluded right internal carotid artery has been reestablished with no occlusion or high- grade stenosis. MRI brain on 02/11/2010 shows right MCA distribution infarct involving the caudate nucleus and ganglion region in the right parietal area and right frontal region. No significant mass-effect or hemorrhage identified. Interval History: Patient is participating in therapy and making reasonable progress. Taking rest breaks as needed. +BM. Otherwise, denies pain, palpitations, dyspnea, cough, N/V, or joint pain. Patient does state that he has a new rash on the right lower extremity. CVA: Continue secondary stroke prevention measures.No further signs of neurologic decline, shoulder sublux, shoulder-hand syndrome, stroke recrudes cence, bowel or bladder issues. Patient is having issues with cognitive deficits and is not accepting of this. Participation seems to be better with speech therapy after our previous conversation. Patient utilizing AFO for left lower extremity to improve ability to ambulate and decreased propensity for falls being that he does have weakness when not concentrating on the left side. 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 Patient currently denies depression and wants to delay starting any treatment. Reinforced with him that we will monitor for worsening signs /symptoms and discuss further if needed. Cognitive deficits: We will continue working with the patient to improve cognitive abilities and or compensatory strategies. Attempting to utilize all 3 therapies and nursing to help improve the patient's cognition and his recognition of his cognitive deficits after the stroke. After our conversation previously as well as multiple interventions by all involved, it does seem the patient is realizing and accepting more more that he does have some cognitive changes since the stroke. We will continue to work with him as we move forward. Dysphagia: MBS on 02/22 without signs of pharyngeal stasis, aspiration or laryngeal penetration. Diet upgraded to regular/thin liquids. Patient does have premature spillage with all consistencies. Resolved Dysarthria: Stable without any worsening of symptoms. Continue speech therapy to improve ability to enunciate and communicate well. Hypertension: Goal SBP less than 140, patient doing fairly well on current dosing regimen. Will need to consider options outside of those already used at outside facility as patient had a rash with unknown origin but was suspected to be one of the agents used for blood pressure control or potassium replacement. Bleeding at Lovenox injection site, now epistaxis: Bleeding has subsided. Hemoglobin is stable. Lovenox stopped and SCDs placed. Stopped aspirin and Brilinta for 2 days and restarted. May need to consider aspirin only regimen after 30 days due to frequency of bleeding episodes. Rash: Widespread rash on patient's trunk has resolved, however now patient has a vesicular rash on the right anterior portion of the tibia. Will utilize steroid for short period. Atarax available for pruritus. Constipation: Improved with bowel medications. Oral bisacodyl started on a scheduled basis. Discussed continuing medications as needed to avoid ongoing i ssues with constipation in the near future. Pain in left lower extremity: Resolved. Distal to the head of the fibula. Palpable area not resolved with motion of the lower extremity, not consistent w ith contracture, suspect for possible thrombosis, Doppler ordered and was negative. All records, vitals, labs and medications were reviewed. No other issues per patient, nursing or therapy. Patient was discussed with all therapies and nursing. Objective - Exam Narrative Exam: MUSCULOSKELETAL SPECIALTY EXAM CONSTITUTIONAL: Well developed, well nourished, appropriately groomed, thin. RIGHT hand dominant. RESPIRATORY: Clear to auscultation bilaterally, no increased work of breathing CARDIOVASCULAR: Regular Rate/ Rhythm, no swelling, edema or tenderness in BUE or BLE. All extremities warm. GI: + bowel sounds, soft, NTTP, nondistended. INTEGUMENTARY: Rash, vesicular in nature, on anterior right tibia. Scattered mild bruising. Otherwise, normal, no lesion, masses noted in extremities. MUSCULOSKELETAL: BUE and BLE normal without defect, crepitus, subluxation, effusion, arthritic changes or TTP. Seem to be some inattention to the left side on initial exam for strength patient had difficulty but with some concentration, he was able to improve his strength on his left extremities. R 4+/5 L 3 - 4- /5 ROM normal on the right, slight decreased on the left Tone within normal limits NEURO: CN VII : Left facial droop Sustained clonus at left ankle Cognitive deficits noted. Sensation intact in all extremities without extinction. No tremor noted in 4 extremities. Follows 2 step commands. Aphasia not appreciated Dysarthria present Dysphagia appreciated Neglect possibly present on the left with slight inattention POSTURE and GAIT: Sitting posture good. Balance poor to fair and gait fair, loss of balance and sequencing issues, slow shortened steps with hemiwalker PSYCH: Alert, oriented x3, affect appears flattened, tearful at times. Insight appears intact. - Constitutional Vitals: Vital Signs - 12hr 03/05/20 03/06/20 03/06/20 23:30 04:00 04:38 Temperature 98.2 F 98.4 F Pulse Rate 92 H 91 H Respiratory 18 20 Rate Blood Pressure 117/77 107/65 O2 Sat by Pulse 96 Oximetry 03/06/20 08:37 Temperature 98.9 F Pulse Rate 90 Respiratory 16 Rate Blood Pressure 128/85 O2 Sat by Pulse 99 Oximetry - Allied health notes Allied health notes reviewed: nursing, PT, ST, OT FIMS assessment as documented by PT/OT/ST: Locomotion- walk/wheelchair Ambulation Distance 10 - Labs CBC & Chem 7: 02/29/20 14:35 02/29/20 14:35 Assessment and Plan CVA with left nondominant hemiparesis: Continue secondary stroke prevention. Monitor for recrudescence, post stroke depression, shoulder-hand syndrome, shoulder sublux, worsening symptoms associated with dysphagia and dysarthtria, bowel and bladder issues. Discussed with patient diagnosis and coverage. Of CVA. We will continue to monitor and educate as time goes on. No driving until patient follows up with neurologist and is cleared. May need to start medication for depression, will continue to monitor and look to start if needed and if patient agrees We will start CIMT in order to improve left upper extremity function. Utilizing AFO on left lower extremity. Patient will need to follow-up with neurology at discharge. Patient will need to follow-up with Dr. Morales (neurosurgery) in approximately 1 month [phone]. Dysphagia: Advance to regular diet. MBS showed spillage but no aspiration. Dysarthria: Continue speech therapy for improvement of ability to enunciate and communicate. Hypertension: Continue medications and adjust as needed for normotension. Goal SBP less than 140. Avoid hypotension Rash: Previous rash has resolved, however patient now has a new rash on the right anterior tibia that is vesicular in nature. Will give oral steroid for short period. Patient developedat outside hospital. Suspected offending medications (Norvasc and losartan) were discontinued. Constipation: Improved with medications. We will continue as needed medications and monitor for improvement. Lovenox injection site bleeding: Lovenox stopped, SCDs placed. Resolved Epistaxis: Aspirin and Brilinta held for 2 days and then restarted. Will continue as long as patient does not have another bleeding episode, if that does happen will contact neurology for further guidance as patient may be okay on aspirin only regimen. Available notes do not have neurology note from outside hospital and am uncertain of who saw him. Cognitive deficits: Difficult for the patient to accept. Long conversation with the patient and family today, hope to see better participation on speech therapy activities going forward now that we have explained the magnitude of the deficits. Seems to be working better with speech therapy now after our conversation. Have discussed with ELECTRICAL APPRENTICE, OT, PT and nursing about strategies to help improve patient's recognition of cognitive deficits and to improve his cognitive function. Pain left lower extremity: Palpable area just distal to head of the fibula. Doppler to rule out thrombosis which was negative. Seems resolved ADL dysfunction: OT will work on improving ability to perform ADLs (including assistive devices) to increase independence and decrease caregiver burden and improve functional transfers and mobility training. Difficulty walking: PT will work on gait training and proper use of assistive devices and advance as appropriate to use of stairs and outside ambulation on uneven surfaces. Unsteadiness on feet: PT will work on improving static and dynamic sitting and standing balance as well as proper use of assistive devices to decrease risk of falls. Abnormality of gait: PT will work to improve safety and efficiency of gait through neuromotor training and gait training along with instruction on proper use of assistive devices. Muscle weakness: PT & OT will work on strengthening exercises to improve functional strength including mixture of closed and open kinetic chain exercises. Debility: PT & OT will work on improving overall functional status to improve participation with ADLs, mobility and social involvement. Fatigue: PT & OT will work on improving endurance through aerobic exercises and therapeutic activity while monitoring patients tolerance for activity and vital signs as needed. DVT ppx: Lovenox stopped due to continued bleeding at injection site, SCDs placed Pain: Continue physical modalities in therapy and pain medications as needed to achieve functional pain control. Sleep: Monitor and address as needed. Bowel: Monitor and address as needed. Appetite: Monitor and address as needed. Discharge planning: Pending therapy progress and care plan meeting. Will continue discussion with therapy team, SW, patient and family. Restrictions/ Precautions: Falls, aspiration WB status: FWB Functional Hx: ADLs: Independent Cognition: Independent Mobility: No AD Barriers to Discharge: Decreased mobility and ability to perform self care, balance deficits, weakness Estimated Length of Stay: 14-18 days Discharge Destination: Home with family
[2020-03-06] MEDS: ASPIRIN EC 81 MG TAB PO SCH (10:11)
[2020-03-06] MEDS: hydroCHLOROthiazide 12.5 MG CAP PO SCH (10:11)
[2020-03-06] MEDS: predniSONE 20 MG TAB PO SCH (10:12)
[2020-03-06] MEDS: TICAGRELOR 90 MG TAB PO SCH ×2 (10:12→21:11)
--- NOTE | 2020-03-07 09:19 | Progress Note ---
Subjective Date of service: 03/07/20 Principal diagnosis: CVA with left nondominant hemiparesis Interval history: 64-year-old male who was in his normal state of health until he developed acute onset of weakness and facial droop. He was taken to the ER on 02/11/2020. He was worked up and diagnosed with a right sided MCA/ICA occlusion and was transferred for neuro intervention and underwent thrombectomy on 02/11/2020. After thrombectomy he had a slight improvement in his function. He developed a widespread rash was possibly related to medications that were subsequently stopped. Blood pressure was variable and apparently his home dose of HCTZ was reduced at one-point and he continues on that decreased dose currently. Will need to monitor his blood pressure closely and adjust medications as needed to keep him normotensive. Patient also had dysphagia and was evaluated by speech therapy which started him on a modified diet. We will monitor the patient closely for any issues with dehydration and are aspiration. Modified barium study as needed in order to prove his ability to take in a higher level diet vitals were incidentally found on a CT and an ultrasound showed a 3.7 hyp ervascular TR 3 nodule in the right mid thyroid that meets criteria for biopsy. Patient will need to follow-up with endocrinology at discharge for further biopsy and work-up. Patient did have some higher glucose values during his stay at the outside hospital and hemoglobin A1c was slightly elevated at 6.6. CTA performed at OSH showed no significant stenosis involving the cervical carotid and vertebral arteries. States he had the previously seen occluded right internal carotid artery has been reestablished with no occlusion or high- grade stenosis. MRI brain on 02/11/2010 shows right MCA distribution infarct involving the caudate nucleus and ganglion region in the right parietal area and right frontal region. No significant mass-effect or hemorrhage identified. Interval History: Patient is participating in therapy and making reasonable progress. Taking rest breaks as needed. +BM. Otherwise, denies pain, palpitations, dyspnea, cough, N/V, or joint pain. Patient does state that he has a new rash on the right lower extremity. CVA: Continue secondary stroke prevention measures.No further signs of neurologic decline, shoulder sublux, shoulder-hand syndrome, stroke recrudes cence, bowel or bladder issues. Patient is having issues with cognitive deficits and is not accepting of this. Participation seems to be better with speech therapy after our previous conversation. Patient utilizing AFO for left lower extremity to improve ability to ambulate and decreased propensity for falls being that he does have weakness when not concentrating on the left side. Patient currently denies depression and wants to delay starting any treatment. Reinforced with him that we will monitor for worsening signs/symptoms and discuss further if needed. Cognitive deficits: We will continue working with the patient to improve cognitive abilities and or compensatory strategies. Attempting to utilize all 3 therapies and nursing to help improve the patient's cognition and his recog nition of his cognitive deficits after the stroke. After our conversation previously as well as multiple interventions by all involved, it does seem the patient is realizing and accepting more more that he does have some cognitive changes since the stroke. We will continue to work with him as we move forward. Dysphagia: MBS on 02/22 without signs of pharyngeal stasis, aspiration or laryngeal penetration. Diet upgraded to regular/thin liquids. Patient does have premature spillage with all consistencies. Resolved Dysarthria: Stable without any worsening of symptoms. Continue speech therapy to improve ability to enunciate and communicate well. Hypertension: Goal SBP less than 140, patient doing fairly well on current dosing regimen. Will need to consider options outside of those already used at outside facility as patient had a rash with unknown origin but was suspected to be one of the agents used for blood pressure control or potassium replacement. Bleeding at Lovenox injection site, now epistaxis: Bleeding has subsided. Hemoglobin is stable. Lovenox stopped and SCDs placed. Stopped aspirin and Brilinta for 2 days and restarted. May need to consider aspirin only regimen after 30 days due to frequency of bleeding episodes. Rash: Widespread rash on patient's trunk has resolved, however now patient has a vesicular rash on the right anterior portion of the tibia. Will utilize steroid for short period. Atarax available for pruritus. Rash is stable today without worsening or significant improvement, patient does state that the itching has decreased slightly Constipation: Improved with bowel medications. Oral bisacodyl started on a scheduled basis. Discussed continuing medications as needed to avoid ongoing issues with constipation in the near future. Pain in left lower extremity: Resolved. Distal to the head of the fibula. Palpable area not resolved with motion of the lower extremity, not consistent with contracture, suspect for possible thrombosis, Doppler ordered and was negative. Patient discussed in team conference. Patient at this point has reached a plateau it seems. Still having issues with balance on occasion with standing and doing other activities, however when ambulating his balance is not much of an issue. Carryover is still a large problem for the patient as well as sequencing and planning. We will look to discharge towards the end of the week, will need to get family in for family training prior to that. Patient will need to continue with outpatient therapy in order to continue to attempt to improve his functional outcome. Medically the patient is fairly stable with a few minor issues noted above. All records, vitals, labs and medications were reviewed. No other issues per patient, nursing or therapy. Patient was discussed with all therapies and nursing. Objective - Exam Narrative Exam: MUSCULOSKELETAL SPECIALTY EXAM CONSTITUTIONAL: Well developed, well nourished, appropriately groomed, thin. RIGHT hand dominant. RESPIRATORY: Clear to auscultation bilaterally, no increased work of breathing CARDIOVASCULAR: Regular Rate/ Rhythm, no swelling, edema or tenderness in BUE or BLE. All extremities warm. GI: + bowel sounds, soft, NTTP, nondistended. INTEGUMENTARY: Rash, vesicular in nature, on anterior right tibia, state. Scattered mild bruising, mostly resolved. Otherwise, normal, no lesion, masses noted in extremities. MUSCULOSKELETAL: BUE and BLE normal without defect, crepitus, subluxation, effusion, arthritic changes or TTP. Seem to be some inattention to the left side on initial exam for strength patien t had difficulty but with some concentration, he was able to improve his strength on his left extremities. R 4+/5 L 3 - 4- /5 ROM normal on the right, slight decreased on the left Tone within normal limits NEURO: CN VII : Left facial droop Sustained clonus at left ankle Cognitive deficits noted. Sensation intact in all extremities without extinction. No tremor noted in 4 extremities. Follows 2 step commands. Aphasia not appreciated Dysarthria present Dysphagia appreciated Neglect present on the left with slight inattention POSTURE and GAIT: Sitting posture good. Balance poor to fair and gait fair, loss of balance and sequencing issues, slow shortened steps with hemiwalker PSYCH: Alert, oriented x3, affect appears flattened, tearful at times. Insight appears intact. - Constitutional Vitals: Vital Signs - 12hr 03/06/20 03/07/20 23:25 08:13 Temperature 97.6 F 98.5 F Pulse Rate 91 H 85 Respiratory 18 18 Rate Blood Pressure 130/88 126/70 O2 Sat by Pulse 98 99 Oximetry - Allied health notes Allied health notes reviewed: nursing, PT, ST, OT FIMS assessment as documented by PT/OT/ST: Locomotion- walk/wheelchair Ambulation Distance 10 - Labs CBC & Chem 7: 02/29/20 14:35 02/29/20 14:35 Assessment and Plan CVA with left nondominant hemiparesis: Continue secondary stroke prevention. Monitor for recrudescence, post stroke depression, shoulder-hand syndrome, shoulder sublux, worsening symptoms associated with dysphagia and dysarthtria, bowel and bladder issues. Discussed with patient diagnosis and coverage. Of CVA. We will continue to monitor and educate as time goes on. No driving until patient follows up with neurologist and is cleared. May need to start medication for depression, will continue to monitor and look to start if needed and if patient agrees We will start CIMT in order to improve left upper extremity function. Utilizing AFO on left lower extremity. Patient will need to follow-up with neurology at discharge. Patient will need to follow-up with Dr. Morales (neurosurgery) in approximately 1 month [phone]. Dysphagia: Advance to regular diet. MBS showed spillage but no aspiration. Dysarthria: Continue speech therapy for improvement of ability to enunciate and communicate. Hypertension: Continue medications and adjust as needed for normotension. Goal SBP less than 140. Avoid hypotension Rash: Previous rash has resolved, however patient now has a new rash on the right anterior tibia that is vesicular in nature. Will give oral steroid for short period. Patient developedat outside hospital. Suspected offending medications (Norvasc and losartan) were discontinued. Constipation: Improved with medications. We will continue as needed medications and monitor for improvement. Lovenox injection site bleeding: Lovenox stopped, SCDs placed. Resolved Epistaxis: Aspirin and Brilinta held for 2 days and then restarted. Will continue as long as patient does not have another bleeding episode, if that does happen will contact neurology for further guidance as patient may be okay on aspirin only regimen. Available notes do not have neurology note from outside hospital and am uncertain of who saw him. Cognitive deficits: Difficult for the patient to accept. Long conversation with the patient and family today, hope to see better participation on speech therapy activities going forward now that we have explained the magnitude of the deficits. Seems to be working better with speech therapy now after our conversa tion. Have discussed with [employer], OT, PT and nursing about strategies to help improve patient's recognition of cognitive deficits and to improve his cognitive function. Pain left lower extremity: Palpable area just distal to head of the fibula. Doppler to rule out thrombosis which was negative. Seems resolved ADL dysfunction: OT will work on improving ability to perform ADLs (including assistive devices) to increase independence and decrease caregiver burden and improve functional transfers and mobility training. Difficulty walking: PT will work on gait training and proper use of assistive devices and advance as appropriate to use of stairs and outside ambulation on uneven surfaces. Unsteadiness on feet: PT will work on improving static and dynamic sitting and standing balance as well as proper use of assistive devices to decrease risk of falls. Abnormality of gait: PT will work to improve safety and efficiency of gait through neuromotor training and gait training along with instruction on proper use of assistive devices. Muscle weakness: PT & OT will work on strengthening exercises to improve functional strength including mixture of closed and open kinetic chain exercises. Debility: PT & OT will work on improving overall functional status to improve participation with ADLs, mobility and social involvement. Fatigue: PT & OT will work on improving endurance through aerobic exercises and therapeutic activity while monitoring patients tolerance for activity and vital signs as needed. DVT ppx: Lovenox stopped due to continued bleeding at injection site, SCDs placed Pain: Continue physical modalities in therapy and pain medications as needed to achieve functional pain control. Sleep: Monitor and address as needed. Bowel: Monitor and address as needed. Appetite: Monitor and address as needed. Discharge planning: Pending therapy progress and care plan meeting. Will continue discussion with therapy team, SW, patient and family. Look to discharge end of week with family after family training. Patient will need a wheelchair and bedside commode unless his status improves to the point of being able to safely utilize a walker for all mobility and MR ADLs. Restrictions/ Precautions: Falls, aspiration WB status: FWB Functional Hx: ADLs: Independent Cognition: Independent Mobility: No AD Barriers to Discharge: Decreased mobility and ability to perform self care, balance deficits, weakness Estimated Length of Stay: 14-18 days Discharge Destination: Home with family
[2020-03-07] MEDS: TICAGRELOR 90 MG TAB PO SCH ×2 (10:56→22:40)
[2020-03-07] MEDS: ASPIRIN EC 81 MG TAB PO SCH (10:56)
[2020-03-07] MEDS: predniSONE 20 MG TAB PO SCH (10:56)
[2020-03-07] MEDS: hydroCHLOROthiazide 12.5 MG CAP PO SCH (10:56)
--- NOTE | 2020-03-08 08:49 | Progress Note ---
Subjective Date of service: 03/08/20 Principal diagnosis: CVA with left nondominant hemiparesis Interval history: 64-year-old male who was in his normal state of health until he developed acute onset of weakness and facial droop. He was taken to the ER on 02/11/2020. He was worked up and diagnosed with a right sided MCA/ICA occlusion and was transferred for neuro intervention and underwent thrombectomy on 02/11/2020. After thrombectomy he had a slight improvement in his function. He developed a widespread rash was possibly related to medications that were subsequently stopped. Blood pressure was variable and apparently his home dose of HCTZ was reduced at one-point and he continues on that decreased dose currently. Will need to monitor his blood pressure closely and adjust medications as needed to keep him normotensive. Patient also had dysphagia and was evaluated by speech therapy which started him on a modified diet. We will monitor the patient closely for any issues with dehydration and are aspiration. Modified barium study as needed in order to prove his ability to take in a higher level diet vitals were incidentally found on a CT and an ultrasound showed a 3.7 hyp ervascular TR 3 nodule in the right mid thyroid that meets criteria for biopsy. Patient will need to follow-up with endocrinology at discharge for further biopsy and work-up. Patient did have some higher glucose values during his stay at the outside hospital and hemoglobin A1c was slightly elevated at 6.6. CTA performed at OSH showed no significant stenosis involving the cervical carotid and vertebral arteries. States he had the previously seen occluded right internal carotid artery has been reestablished with no occlusion or high- grade stenosis. MRI brain on 02/11/2010 shows right MCA distribution infarct involving the caudate nucleus and ganglion region in the right parietal area and right frontal region. No significant mass-effect or hemorrhage identified. Interval History: Patient is participating in therapy and making reasonable progress. Taking rest breaks as needed. +BM. Otherwise, denies pain, palpitations, dyspnea, cough, N/V, or joint pain. Patient does state that he has a new rash on the right lower extremity. CVA: Continue secondary stroke prevention measures.No further signs of neurologic decline, shoulder sublux, shoulder-hand syndrome, stroke recrudes cence, bowel or bladder issues. Patient is having issues with cognitive deficits. Patient now walking without AFO utilizing hemiwalker with fair clearance of the left foot. patient currently denies depression and wants to delay starting any treatment. Reinforced with him that we will monitor for worsening signs/symptoms and discuss further if needed. Cognitive deficits: We will continue working with the patient to improve cognitive abilities and or compensatory strategies. Attempting to utilize all 3 therapies and nursing to help improve the patient's cognition and his recognition of his cognitive deficits after the stroke. Dysphagia: MBS on 02/22 without signs of pharyngeal stasis, aspiration or laryngeal penetration. Diet upgraded to regular/thin liquids. Patient does have premature spillage with all consistencies. Resolved Dysarthria: Stable without any worsening of symptoms. Continue speech therapy to improve ability to enunciate and communicate well. Hypertension: Goal SBP less than 140, patient doing fairly well on current dosing regimen. Will need to consider options outside of those already used at outside facility as patient had a rash with unknown origin but was suspected to be one of the agents used for blood pressure control or potassium replacement. Bleeding at Lovenox injection site, now epistaxis: Bleeding has subsided. Hemoglobin is stable. Lovenox stopped and SCDs placed. Stopped aspirin and Brilinta for 2 days and restarted. May need to consider aspirin only regimen after 30 days due to frequency of bleeding episodes. Rash: Widespread rash on patient's trunk has resolved, however now patient has a vesicular rash on the right anterior portion of the tibia. Will utilize steroid for short period. Atarax available for pruritus. Rash is stable today without worsening or significant improvement, patient does state that the itching has decreased Constipation: Improved with bowel medications. Oral bisacodyl started on a sche duled basis. Discussed continuing medications as needed to avoid ongoing issues with constipation in the near future. Pain in left lower extremity: Resolved. Distal to the head of the fibula. Palp able area not resolved with motion of the lower extremity, not consistent with contracture, suspect for possible thrombosis, Doppler ordered and was negative. DME: Patient will need a lightweight wheelchair at discharge. Patient is unable to ambulate household distances safely with any lesser item including cane, hemiwalker, rolling walker. Patient is unsafe to perform MR ADLs from the stand ing level with any of the above devices. Patient will utilize the wheelchair in the home environment which will significantly improve the patient's ability to participate in MR ADLs, has demonstrated within therapy that he is capable of using the wheelchair without assistance. Lightweight wheelchair is needed in order to reduce wear and tear on shoulders as well as to decrease energy expenditure in a patient with left hemiplegia. All records, vitals, labs and medications were reviewed. No other issues per patient, nursing or therapy. Patient was discussed with all therapies and nursing. Objective - Exam Narrative Exam: MUSCULOSKELETAL SPECIALTY EXAM CONSTITUTIONAL: Well developed, well nourished, appropriately groomed, thin. RIGHT hand dominant. RESPIRATORY: Clear to auscultation bilaterally, no increased work of breathing CARDIOVASCULAR: Regular Rate/ Rhythm, no swelling, edema or tenderness in BUE or BLE. All extremities warm. GI: + bowel sounds, soft, NTTP, nondistended. INTEGUMENTARY: Rash, vesicular in nature, on anterior right tibia, state. Scattered mild bruising, mostly resolved. Otherwise, normal, no lesion, masses noted in extremities. MUSCULOSKELETAL: BUE and BLE normal without defect, crepitus, subluxation, effusion, arthritic changes or TTP. Seem to be some inattention to the left side on initial exam for strength patient had difficulty but with some concentration, he was able to improve his strength on his left extremities. R 4+/5 L 3 - 4- /5 ROM normal on the right, slight decreased on the left Tone within normal limits NEURO: CN VII : Left facial droop Sustained clonus at left ankle Cognitive deficits noted. Sensation intact in all extremities without extinction. No tremor noted in 4 extremities. Follows 2 step commands. Aphasia not appreciated Dysarthria present Dysphagia appreciated Neglect present on the left with slight inattention POSTURE and GAIT: Sitting posture good. Balance fair and gait fair, loss of balance has improved and sequencing issues, slow steps with hemiwalker, still veering towards the right PSYCH: Alert, oriented x3, affect appears flattened, tearful at times. Insight appears intact. - Constitutional Vitals: Vital Signs - 12hr 03/08/20 03/08/20 06:07 08:06 Temperature 98.2 F 97.8 F Pulse Rate 95 H 104 H Respiratory 20 18 Rate Blood Pressure 129/78 143/88 O2 Sat by Pulse 99 99 Oximetry - Allied health notes Allied health notes reviewed: nursing, PT, ST, OT FIMS assessment as documented by PT/OT/ST: Locomotion- walk/wheelchair Ambulation Distance 10 - Labs CBC & Chem 7: 02/29/20 14:35 02/29/20 14:35 Assessment and Plan CVA with left nondominant hemiparesis: Continue secondary stroke prevention. Monitor for recrudescence, post stroke depression, shoulder-hand syndrome, shoulder sublux, worsening symptoms associated with dysphagia and dysarthtria, bowel and bladder issues. Discussed with patient diagnosis and coverage. Of CVA. We will continue to monitor and educate as time goes on. No driving until patient follows up with neurologist and is cleared. May need to start medication for depression, will continue to monitor and look to start if needed and if patient agrees We will start CIMT in order to improve left upper extremity function. Utilizing AFO on left lower extremity. Patient will need to follow-up with neurology at discharge. Patient will need to follow-up with Dr. Morales (neurosurgery) in approximately 1 month [phone]. Dysphagia: Advance to regular diet. MBS showed spillage but no aspiration. Dysarthria: Continue speech therapy for improvement of ability to enunciate and communicate. Hypertension: Continue medications and adjust as needed for normotension. Goal SBP less than 140. Avoid hypotension Rash: Previous rash has resolved, however patient now has a new rash on the right anterior tibia that is vesicular in nature. Will give oral steroid for short period. Patient developedat outside hospital. Suspected offending medications (Norvasc and losartan) were discontinued. Constipation: Improved with medications. We will continue as needed medications and monitor for improvement. Lovenox injection site bleeding: Lovenox stopped, SCDs placed. Resolved Epistaxis: Aspirin and Brilinta held for 2 days and then restarted. Will continue as long as patient does not have another bleeding episode, if that does happen will contact neurology for further guidance as patient may be okay on aspirin only regimen. Available notes do not have neurology note from outside hospital and am uncertain of who saw him. Cognitive deficits: Difficult for the patient to accept. Long conversation with the patient and family today, hope to see better participation on speech therapy activities going forward now that we have explained the magnitude of the d eficits. Seems to be working better with speech therapy now after our conversation. Have discussed with [employer], OT, PT and nursing about strategies to help improve patient's recognition of cognitive deficits and to improve his cognitive function. Pain left lower extremity: Palpable area just distal to head of the fibula. Doppler to rule out thrombosis which was negative. Seems resolved ADL dysfunction: OT will work on improving ability to perform ADLs (including assistive devices) to increase independence and decrease caregiver burden and improve functional transfers and mobility training. Difficulty walking: PT will work on gait training and proper use of assistive devices and advance as appropriate to use of stairs and outside ambulation on uneven surfaces. Unsteadiness on feet: PT will work on improving static and dynamic sitting and standing balance as well as proper use of assistive devices to decrease risk of falls. Abnormality of gait: PT will work to improve safety and efficiency of gait through neuromotor training and gait training along with instruction on proper use of assistive devices. Muscle weakness: PT & OT will work on strengthening exercises to improve func tional strength including mixture of closed and open kinetic chain exercises. Debility: PT & OT will work on improving overall functional status to improve participation with ADLs, mobility and social involvement. Fatigue: PT & OT will work on improving endurance through aerobic exercises and therapeutic activity while monitoring patients tolerance for activity and vital signs as needed. DVT ppx: Lovenox stopped due to continued bleeding at injection site, SCDs placed Pain: Continue physical modalities in therapy and pain medications as needed to achieve functional pain control. Sleep: Monitor and address as needed. Bowel: Monitor and address as needed. Appetite: Monitor and address as needed. Discharge planning: Pending therapy progress and care plan meeting. Will continue discussion with therapy team, SW, patient and family. Look to discharge end of week with family after family training. Patient will need a wheelchair and bedside commode unless his status improves to the point of being able to safely utilize a walker for all mobility and MR ADLs. Restrictions/ Precautions: Falls, aspiration WB status: FWB Functional Hx: ADLs: Independent Cognition: Independent Mobility: No AD Barriers to Discharge: Decreased mobility and ability to perform self care, balance deficits, weakness Estimated Length of Stay: 14-18 days Discharge Destination: Home with family
[2020-03-08] MEDS: ASPIRIN EC 81 MG TAB PO SCH (18:43)
[2020-03-08] MEDS: predniSONE 20 MG TAB PO SCH (18:43)
[2020-03-08] MEDS: TICAGRELOR 90 MG TAB PO SCH ×2 (18:43→21:20)
[2020-03-08] MEDS: hydroCHLOROthiazide 12.5 MG CAP PO SCH (18:43)
--- NOTE | 2020-03-09 06:42 | Progress Note ---
Subjective Date of service: 03/09/20 Principal diagnosis: CVA with left nondominant hemiparesis Interval history: 64-year-old male who was in his normal state of health until he developed acute onset of weakness and facial droop. He was taken to the ER on 02/11/2020. He was worked up and diagnosed with a right sided MCA/ICA occlusion and was transferred for neuro intervention and underwent thrombectomy on 02/11/2020. After thrombectomy he had a slight improvement in his function. He developed a widespread rash was possibly related to medications that were subsequently stopped. Blood pressure was variable and apparently his home dose of HCTZ was reduced at one-point and he continues on that decreased dose currently. Will need to monitor his blood pressure closely and adjust medications as needed to keep him normotensive. Patient also had dysphagia and was evaluated by speech therapy which started him on a modified diet. We will monitor the patient closely for any issues with dehydration and are aspiration. Modified barium study as needed in order to prove his ability to take in a higher level diet vitals were incidentally found on a CT and an ultrasound showed a 3.7 hyp ervascular TR 3 nodule in the right mid thyroid that meets criteria for biopsy. Patient will need to follow-up with endocrinology at discharge for further biopsy and work-up. Patient did have some higher glucose values during his stay at the outside hospital and hemoglobin A1c was slightly elevated at 6.6. CTA performed at OSH showed no significant stenosis involving the cervical carotid and vertebral arteries. States he had the previously seen occluded right internal carotid artery has been reestablished with no occlusion or high- grade stenosis. MRI brain on 02/11/2010 shows right MCA distribution infarct involving the caudate nucleus and ganglion region in the right parietal area and right frontal region. No significant mass-effect or hemorrhage identified. Interval History: Patient is participating in therapy and making reasonable progress. Taking rest breaks as needed. +BM. Otherwise, denies pain, palpitations, dyspnea, cough, N/V, or joint pain. Family training today with his CVA: Continue secondary stroke prevention measures.No further signs of neurologic decline, shoulder sublux, shoulder-hand syndrome, stroke recrudescence, bowel or bladder issues. Patient is having issues with cognitive deficits. Patient now walking without AFO utilizing hemiwalker with fair clearance of the left foot. patient currently denies depression and wants to delay starting any treatment. Reinforced with him that we will monitor for worsening signs/symptoms and discuss further if needed. Affect remains stable, will defer antidepressant use currently Cognitive deficits: We will continue working with the patient to improve cognitive abilities and or compensatory strategies. Attempting to utilize all 3 therapies and nursing to help improve the patient's cognition and his recognition of his cognitive deficits after the stroke. Dysphagia: MBS on 02/22 without signs of pharyngeal stasis, aspiration or laryngeal penetration. Diet upgraded to regular/thin liquids. Patient does have premature spillage with all consistencies. Resolved Dysarthria: Stable without any worsening of symptoms. Continue speech therapy to improve ability to enunciate and communicate well. Hypertension: Goal SBP less than 140, patient doing fairly well on current dosing regimen. Will need to consider options outside of those already used at outside facility as patient had a rash with unknown origin but was suspected to be one of the agents used for blood pressure control or potassium replacement. Bleeding at Lovenox injection site, now epistaxis: Bleeding has subsided. Hemoglobin is stable. Lovenox stopped and SCDs placed. Stopped aspirin and Brilinta for 2 days and restarted. May need to consider aspirin only regimen after 30 days due to frequency of bleeding episodes. No further episodes of bleeding. Rash: Widespread rash on patient's trunk has resolved, however now patient has a vesicular rash on the right anterior portion of the tibia. Will utilize steroid for short period. Atarax available for pruritus. Rash has improved and almost resolved. Constipation: Improved with bowel medications. Oral bisacodyl started on a scheduled basis. Discussed continuing medications as needed to avoid ongoing issues with constipation in the near future. Pain in left lower extremity: Resolved. Distal to the head of the fibula. Palpable area not resolved with motion of the lower extremity, not consistent with contracture, suspect for possible thrombosis, Doppler ordered and was negative. DME: Patient will need a lightweight wheelchair at discharge. Patient is unable to ambulate household distances safely with any lesser item including cane, hemiwalker, rolling walker. Patient is unsafe to perform MR ADLs from the standing level with any of the above devices. Patient will utilize the wheelchair in the home environment which will significantly improve the patient's ability to participate in MR ADLs, has demonstrated within therapy norberto t he is capable of using the wheelchair without assistance. Lightweight wheelchair is needed in order to reduce wear and tear on shoulders as well as to decrease energy expenditure in a patient with left hemiplegia. All records, vitals, labs and medications were reviewed. No other issues per patient, nursing or therapy. Patient was discussed with all therapies and nursing. Objective - Exam Narrative Exam: MUSCULOSKELETAL SPECIALTY EXAM CONSTITUTIONAL: Well developed, well nourished, appropriately groomed, thin. RIGHT hand dominant. RESPIRATORY: Clear to auscultation bilaterally, no increased work of breathing CARDIOVASCULAR: Regular Rate/ Rhythm, no swelling, edema or tenderness in BUE or BLE. All extremities warm. GI: + bowel sounds, soft, NTTP, nondistended. INTEGUMENTARY: Rash, vesicular in nature, on anterior right tibia, state. Scattered mild bruising, mostly resolved. Otherwise, normal, no lesion, masses noted in extremities. MUSCULOSKELETAL: BUE and BLE normal without defect, crepitus, subluxation, effusion, arthritic changes or TTP. Seem to be some inattention to the left side on initial exam for strength patient had difficulty but with some concentration, he was able to improve his strength on his left extremities, this is improving but still has weakness when he does not concentrate. R 4+/5 L 3 - 4- /5 ROM normal on the right, slight decreased on the left Tone within normal limits NEURO: CN VII : Left facial droop Sustained clonus at left ankle Cognitive deficits noted. Sensation intact in all extremities without extinction. No tremor noted in 4 extremities. Follows 2 step commands. Aphasia not appreciated Dysarthria present Dysphagia appreciated Neglect present on the left with slight inattention POSTURE and GAIT: Sitting posture good. Balance fair and gait fair, loss of balance has improved and sequencing issues, slow steps with hemiwalker, still veering towards the right PSYCH: Alert, oriented x3, affect appears flattened, tearful at times. Insight appears intact. - Constitutional Vitals: Vital Signs - 12hr 03/08/20 20:25 Temperature 98.5 F Pulse Rate 95 H Respiratory 20 Rate Blood Pressure 107/70 O2 Sat by Pulse 98 Oximetry - Allied health notes Allied health notes reviewed: nursing, PT, ST, OT FIMS assessment as documented by PT/OT/ST: Locomotion- walk/wheelchair Ambulation Distance 10 - Labs CBC & Chem 7: 02/29/20 14:35 02/29/20 14:35 Assessment and Plan CVA with left nondominant hemiparesis: Continue secondary stroke prevention. Monitor for recrudescence, post stroke depression, shoulder-hand syndrome, shoulder sublux, worsening symptoms associated with dysphagia and dysarthtria, bowel and bladder issues. Discussed with patient diagnosis and coverage. Of CVA. We will continue to monitor and educate as time goes on. No driving until patient follows up with neurologist and is cleared. May need to start medication for depression, will continue to monitor and look to start if needed and if patient agrees We will start CIMT in order to improve left upper extremity function. Utilizing AFO on left lower extremity. Patient will need to follow-up with neurology at discharge. Patient will need to follow-up with Dr. Morales (neurosurgery) in approximately 1 month [phone]. Dysphagia: Advance to regular diet. MBS showed spillage but no aspiration. Dysarthria: Continue speech therapy for improvement of ability to enunciate and communicate. Hypertension: Continue medications and adjust as needed for normotension. Goal SBP less than 140. Avoid hypotension Rash: Previous rash has resolved, and new rash on the right anterior tibia that is vesicular in nature is close to resolution. Oral steroids will finish tomorrow. Patient developed initial rash at outside hospital. Suspected offending medications (Norvasc and losartan) were discontinued. Constipation: Improved with medications. We will continue as needed medications and monitor for improvement. Lovenox injection site bleeding: Lovenox stopped, SCDs placed. Resolved Epistaxis: Aspirin and Brilinta held for 2 days and then restarted. Will continue as long as patient does not have another bleeding episode, if that does happen will contact neurology for further guidance as patient may be okay on aspirin only regimen. Available notes do not have neurology note from outside hospital and am uncertain of who saw him. Cognitive deficits: Difficult for the patient to accept. Long conversation with the patient and family today, hope to see better participation on speech therapy activities going forward now that we have explained the magnitude of the deficits. Seems to be working better with speech therapy now after our conversation. Have discussed with CONSTRUCTION [employer] MANAGER, OT, PT and nursing about strategies to help improve patient's recognition of cognitive deficits and to improve his cognitive function. Pain left lower extremity: Palpable area just distal to head of the fibula. Doppler to rule out thrombosis which was negative. Seems resolved ADL dysfunction: OT will work on improving ability to perform ADLs (including assistive devices) to increase independence and decrease caregiver burden and improve functional transfers and mobility training. Difficulty walking: PT will work on gait training and proper use of assistive devices and advance as appropriate to use of stairs and outside ambulation on uneven surfaces. Unsteadiness on feet: PT will work on improving static and dynamic sitting and standing balance as well as proper use of assistive devices to decrease risk of falls. Abnormality of gait: PT will work to improve safety and efficiency of gait through neuromotor training and gait training along with instruction on proper use of assistive devices. Muscle weakness: PT & OT will work on strengthening exercises to improve functional strength including mixture of closed and open kinetic chain exercises. Debility: PT & OT will work on improving overall functional status to improve participation with ADLs, mobility and social involvement. Fatigue: PT & OT will work on improving endurance through aerobic exercises and therapeutic activity while monitoring patients tolerance for activity and vital signs as needed. DVT ppx: Lovenox stopped due to continued bleeding at injection site, SCDs placed Pain: Continue physical modalities in therapy and pain medications as needed to achieve functional pain control. Sleep: Monitor and address as needed. Bowel: Monitor and address as needed. Appetite: Monitor and address as needed. Discharge planning: Pending therapy progress and care plan meeting. Will continue discussion with therapy team, SW, patient and family. Look to discharge end of week with family after family training. Patient will need a wheelchair and bedside commode unless his status improves to the point of being able to safely utilize a walker for all mobility and MR ADLs. Restrictions/ Precautions: Falls, aspiration WB status: FWB Functional Hx: ADLs: Independent Cognition: Independent Mobility: No AD Barriers to Discharge: Decreased mobility and ability to perform self care, balance deficits, weakness Estimated Length of Stay: 14-18 days Discharge Destination: Home with family, family training today
[2020-03-09] MEDS: ASPIRIN EC 81 MG TAB PO SCH (10:54)
[2020-03-09] MEDS: hydroCHLOROthiazide 12.5 MG CAP PO SCH (10:54)
[2020-03-09] MEDS: TICAGRELOR 90 MG TAB PO SCH ×2 (10:54→21:25)
[2020-03-09] MEDS: predniSONE 20 MG TAB PO SCH (10:54)
--- NOTE | 2020-03-10 10:40 | Discharge Summary ---
Providers - Providers Date of Admission: 02/21/20 15:17 Date of discharge: 03/10/20 Attending physician: KYA AMAYA III, MD 02/21/20 15:24 Consult to Dietitian/Nutrition [CONS] Routine Physician Instructions: Reason For Exam: Reason for Consult: Pt needs oral supplement Occupational Therapy Evaluate and Treat [CONS] Routine Comment: Reason For Exam: ADL dysfunction Physical Therapy Evaluation and Treat [CONS] Routine Comment: Reason For Exam: Mobility Dysfunction Speech Therapy Evaluation and Treat [CONS] Routine Reason For Exam: Dysphagia, CVA 02/21/20 15:38 Consult to Case Management [CONS] Routine Services Needed at Discharge: Home Health Services Notified:: case management Primary care physician: HOME APPLIANCE TECH Hospitalization Reason for admission: CVA with left nondominant hemiparesis Condition: Good Pertinent studies: Modified barium swallow dated 02/23/2020 showed no evidence for aspiration or penetration. There was premature spillage with all consistencies. Ultrasound Doppler of the left lower extremity showed no evidence of DVT. Hospital course: 64-year-old male who was in his normal state of health until he developed acute onset of weakness and facial droop. He was taken to the ER on 02/11/2020. He was worked up and diagnosed with a right sided MCA/ICA occlusion and was transferred for neuro intervention and underwent thrombectomy on 02/11/2020. After thrombectomy he had a slight improvement in his function. He developed a widespread rash was possibly related to medications that were subsequently stopped. Blood pressure was variable and apparently his home dose of HCTZ was reduced at one-point and he continues on that decreased dose currently. Will need to monitor his blood pressure closely and adjust medications as needed to keep him normotensive. Patient also had dysphagia and was evaluated by speech therapy which started him on a modified diet. We will monitor the patient closely for any issues with dehydration and are aspiration. Modified barium study as needed in order to prove his ability to take in a higher level diet vitals were incidentally found on a CT and an ultrasound showed a 3.7 hypervascular TR 3 nodule in the right mid thyroid that meets criteria for biopsy. Patient will need to follow-up with endocrinology at discharge for further biopsy and work-up. Patient did have some higher glucose values during his stay at the outside hospital and hemoglobin A1c was slightly elevated at 6. 6. CTA performed at OSH showed no significant stenosis involving the cervical carotid and vertebral arteries. States he had the previously seen occluded right internal carotid artery has been reestablished with no occlusion or high- grade stenosis. MRI brain on 02/11/2010 shows right MCA distribution infarct involving the caudate nucleus and ganglion region in the right parietal area and right frontal region. No significant mass-effect or hemorrhage identified. CVA: Continue secondary stroke prevention measures.No further signs of neurologic decline, shoulder sublux, shoulder-hand syndrome, stroke recrudescence, bowel or bladder issues. Patient is having issues with cognitive deficits. Patient now walking without AFO utilizing hemiwalker with fair clearance of the left foot. patient currently denies depression and wants to delay starting any treatment. Reinforced with him that we will monitor for worsening signs/symptoms and discuss further if needed. Affect remains stable, will defer antidepressant use currently. Discussed with the patient he will need to follow-up with neurology of his choice/insurance coverage at discharge. Patient will also need to follow-up with Dr. Morales (neurosurgery) in approximately 1 month. Discussed with the patient again the importance of continuing secondary stroke prevention and with follow-up details for neurology, neurosurgery, and PCP. Cognitive deficits: We will continue working with the patient to improve cognitive abilities and or compensatory strategies. Attempting to utilize all 3 therapies and nursing to help improve the patient's cognition and his recognition of his cognitive deficits after the stroke. Dysphagia: MBS on 02/22 without signs of pharyngeal stasis, aspiration or laryngeal penetration. Diet upgraded to regular/thin liquids. Patient does have premature spillage with all consistencies. Resolved Dysarthria: Stable without any worsening of symptoms. Continue speech therapy to improve ability to enunciate and communicate well. Hypertension: Goal SBP less than 140, patient doing fairly well on current dosing regimen. Will need to consider options outside of those already used at outside facility as patient had a rash with unknown origin but was suspected to be one of the agents used for blood pressure control or potassium replacement. Bleeding at Lovenox injection site, now epistaxis: Bleeding has subsided. Hemoglobin is stable. Lovenox stopped and SCDs placed. Stopped aspirin and Brilinta for 2 days and restarted. May need to consider aspirin only regimen after 30 days due to frequency of bleeding episodes. Very limited amount of epistaxis reported this morning (day of discharge). Discussed with patient that he will need to follow-up with neurology and PCP and to track any further episodes. He may need to go on an aspirin only regimen if epistaxis continues to be a frequent issue. Attempted to review patient's notes from outside hospital however no neurology notes were available. This is the patient's first CVA and would likely be okay on aspirin 81 mg daily however I do not have access to all of outside hospital records (although they were requested) to even know which neurologist saw him. Rash: Widespread rash on patient's trunk has resolved, however now patient has a vesicular rash on the right anterior portion of the tibia. Will utilize steroid for short period. Atarax available for pruritus. Rash has resolved. Constipation: Improved with bowel medications. Oral bisacodyl started on a scheduled basis. Discussed continuing medications as needed to avoid ongoing issues with constipation in the near future. Pain in left lower extremity: Resolved. Distal to the head of the fibula. Palpable area not resolved with motion of the lower extremity, not consistent with contracture, suspect for possible thrombosis, Doppler ordered and was negative. Disposition: DC-01 TO HOME OR SELFCARE Time spent for discharge: >30min Core Measure Documentation - Palliative Care Palliative Care/ Comfort Measures: Not Applicable - Core Measures Any of the following diagnoses?: stroke - Stroke Discharge Requirements Statin for LDL = or >70 mg/dl on DC: Yes Anticoag for atrial fib/atrial flutter: Not Applicable Antithrombotic for ischemic stroke: Yes Exam - Physical Exam Narrative exam: MUSCULOSKELETAL SPECIALTY EXAM CONSTITUTIONAL: Well developed, well nourished, appropriately groomed, thin. RIGHT hand dominant. RESPIRATORY: Clear to auscultation bilaterally, no increased work of breathing CARDIOVASCULAR: Regular Rate/ Rhythm, no swelling, edema or tenderness in BUE or BLE. All extremities warm. GI: + bowel sounds, soft, NTTP, nondistended. INTEGUMENTARY: Rash, vesicular in nature, on anterior right tibia, mostly resolved. Scattered mild bruising, mostly resolved. Otherwise, normal, no lesion, masses noted in extremities. MUSCULOSKELETAL: BUE and BLE normal without defect, crepitus, subluxation, effusion, arthritic changes or TTP. Seem to be some inattention to the left side on initial exam for strength patient had difficulty but with some concentration, he was able to improve his strength on his left extremities, this is improving but still has weakness when he does not concentrate. R 4+/5 L 3 - 4- /5 ROM normal on the right, slight decreased on the left Tone within normal limits NEURO: CN VII : Left facial droop Sustained clonus at left ankle Cognitive deficits noted. Sensation intact in all extremities without extinction. No tremor noted in 4 extremities. Follows 2 step commands. Aphasia not appreciated Dysarthria present Dysphagia appreciated Neglect present on the left with slight inattention POSTURE and GAIT: Sitting posture good. Balance fair and gait fair, loss of balance has improved and sequencing issues, slow steps with hemiwalker, still veering towards the right PSYCH: Alert, oriented x3, affect appears flattened, tearful at times. Insight appears intact. - Constitutional Vitals: Temp Pulse Resp BP Pulse Ox 101.0 F H 127 H 18 130/80 97 03/10/20 08:37 03/10/20 08:37 03/10/20 08:37 03/10/20 08:37 03/10/20 08:37 Plan Activity: up only with assistance, fall precautions, other (No driving until cleared by neurology) Weight Bearing Status: Full Weight Bearing Diet: low cholesterol Special Instructions: follow up in rehab Durable Medical Equipment Needed Upon Discharge: Wheelchair, Bedside Commode Care Plan Goals: Patient will need to follow-up with PCP and neurologist of choice. Patient also needs a follow-up with Dr. Morales (neurosurgery) in approximately 1 month and will need to call the office in order to schedule that appointment. [phone] Patient will also need to follow-up with endocrinology for an incidental finding on CT of a thyroid nodule that meets criteria for biopsy. Instructed the patient to keep track of any further epistaxis (nosebleeds) or other bleeding episodes. If patient experiences frequent bleeding episodes or has severe bleeding that does not stop he will need to return to ER. He is on dual antiplatelet therapy with Brilinta and aspirin. May be able to reduce to just aspirin per neurology recommendation once he follows up. At this point he has only had one minor nosebleed in the hospital when he was on the dual antiplatelet therapy. He did have a prior issue when Lovenox was being used for DVT prophylaxis but that resolved with cessation of Lovenox. Discussed with patient and previously about post stroke depression. Patient does seem to have symptoms that are consistent with beginnings of this however he and the both want to hold off on starting any treatment for depression. Patient does seem to have improved slightly since being on our unit. Would encourage further monitoring of mood/affect and consider starting medication if warranted. Patient will continue with outpatient therapy in order to continue to improve functional gains. Follow up with: PRIMARY CARE, [Primary Care Provider] - 7 Days Prescriptions: AtorvaSTATin [Lipitor] 80 mg PO QHS #30 tablet Ticagrelor [Brilinta] 90 mg PO BID #60 tablet bisacodyL [Dulcolax tab] 5 mg PO QDAY PRN #30 tablet PRN Reason: Constipation Aspirin EC [Halfprin EC] 81 mg PO QDAY #30 tablet hydroCHLOROthiazide [HCTZ] 12.5 mg PO QDAY #30 capsule
[2020-03-10 12:29] VITALS: BP 126/82
[2020-03-10] MEDS: hydroCHLOROthiazide 12.5 MG CAP PO SCH (13:15)
[2020-03-10] MEDS: TICAGRELOR 90 MG TAB PO SCH (13:15)
[2020-03-10] MEDS: ASPIRIN EC 81 MG TAB PO SCH (13:15)
== END 2020-03-10 14:24 | disposition home or self-care (01) | DRG 56 ==
LOC: 4A 11:40 → UNDOADMIN 11:40 → 4A 15:17
PROVIDERS: ADMIT Physical Medicine & Rehabilitation; ATTEND Physical Medicine & Rehabilitation
DX: I69.354 Hemiplegia and hemiparesis following cerebral infarction affecting left non-dominant side (principal); I63.9 Cerebral infarction, unspecified; I10 Essential (primary) hypertension; M62.81 Muscle weakness (generalized); R13.10 Dysphagia, unspecified; R26.9 Unspecified abnormalities of gait and mobility; Z79.891 Long term (current) use of opiate analgesic; K59.00 Constipation, unspecified; E86.0 Dehydration; F32.89 Other specified depressive episodes; R41.89 Other symptoms and signs involving cognitive functions and awareness; R04.0 Epistaxis; Z88.5 Allergy status to narcotic agent; Z88.8 Allergy status to other drugs, medicaments and biological substances; Z82.3 Family history of stroke; Z79.899 Other long term (current) drug therapy; Z79.82 Long term (current) use of aspirin
CPT/HCPCS: 36415; 74230; 80048; 80053; 85025; 85027; 87116; 90686; 94640; 94760; 99406; G0378; G0515; A9270-GY; J1650; J7512